=== PATIENT | male | born 1985 | race Caucasian/White ===

== ENCOUNTER 2018-04-29 06:38 | Inpatient (IN) | payer SELFPAY ==
[2018-04-29] VITALS (13 sets, daily range): BP systolic 116–184; BP diastolic 71–130
[~2018-04-29] VITALS: Ht 172.7 cm; Wt 57.0 kg
[2018-04-29] MEDS ORDERED: KETOROLAC 30 MG/ML VIAL. IV ONE (07:30)
[2018-04-29] MEDS ORDERED: FAMOTIDINE 20 MG/2 ML VIAL IVP ONE (07:30)
[2018-04-29] MEDS ORDERED: ONDANSETRON PF 4 MG/2 ML VIAL. IV ONE (07:30)
[2018-04-29] MEDS ORDERED: IV NORMAL SALINE 1000ML BAG 1,000 ML IV ONE (07:30)
--- NOTE | 2018-04-29 07:31 | EKG ---
[facility] [address] [place] [address] Test Date: 2018-04-29 Test Time: 07:21:23 Pat Name: PAO DOUGLAS Department: Room: Gender: M Refrigeration Mechanic Helper: : 1985 Requested By: CASIMIRO CRANE Order Number: [id number] Reading MD: Logan Contreras MD Measurements Intervals Lafe Rate: 102 P: -73 ID: 100 QRS: 17 QRSD: 104 T: 125 QT: 364 QTc: 479 Interpretive Statements SINUS TACHYCARDIA LVH PVC Electronically Signed On 04-29-2018 10:37:51 CDT by Logan Contreras MD
[2018-04-29 07:59] LABS: BILIRUBIN,URINE NEGATIVE (NEG); CLARITY,URINE CLEAR; COLOR,URINE YELLOW; NITRITE,URINE NEGATIVE (NEG); PH,URINE 6.5; PROTEIN,URINE >=300 mg/dL (NEG-TRACE); UROBILINOGEN,URINE 0.2 mg/dL (0.2 mg/dL)
[2018-04-29 08:00] LABS: BASO # 0.1 x10^3/uL (0.0-0.2); BASO % 1 % (0-3); EOS # 0.5 x10^3/uL (0.0-0.7); EOS % 4 % (0-3); HEMATOCRIT 46.3 % (39.0-53.0); HEMOGLOBIN 16.3 g/dL (13.0-17.5); LYMPH # 1.7 x10^3/uL (1.0-4.8); LYMPH % 13 % (24-48); MEAN CORPUSCULAR HEMOGLOBIN 29 pg (25-35); MEAN CORPUSCULAR HGB CONC 35 g/dL (31-37); MEAN CORPUSCULAR VOLUME 82 fL (79-100); MONO # 0.8 x10^3/uL (0.0-1.1); MONO % 6 % (0-9); NEUT # 10.7 x10^3uL (1.8-7.7); NEUT % 77 % (31-73); PLATELET COUNT 251 x10^3/uL (140-400); RED BLOOD COUNT 5.62 x10^6/uL (4.30-5.70); RED CELL DISTRIBUTION WIDTH 14.4 % (11.5-14.5); WHITE BLOOD COUNT 13.9 x10^3/uL (4.0-11.0)
[2018-04-29 08:06] LABS: AMPHETAMINE/METHAMPHETAMINE NEG (NEG); BARBITURATES NEG (NEG); BENZODIAZEPINES POS (NEG); CANNABINOIDS NEG (NEG); COCAINE NEG (NEG); METHADONE NEG (NEG); OPIATES POS (NEG); PHENCYCLIDINE NEG (NEG)
[2018-04-29 08:08] LABS: SQUAMOUS EPITHELIAL CELL,UR OCC /LPF
[2018-04-29 08:09] LABS: BACTERIA,URINE FEW /HPF (0-FEW); RBC,URINE 0 /HPF (0-2)
[2018-04-29 08:11] LABS: PROTHROMBIN TIME PATIENT 12.3 SEC (11.7-14.0)
[2018-04-29 08:12] LABS: ALBUMIN 4.3 g/dL (3.4-5.0); CALCIUM 9.5 mg/dL (8.5-10.1); CREATININE 1.6 mg/dL (0.7-1.3); MAGNESIUM 2.1 mg/dL (1.8-2.4); TOTAL BILIRUBIN 0.5 mg/dL (0.2-1.0); TOTAL PROTEIN 8.7 g/dL (6.4-8.2)
[2018-04-29 08:14] LABS: POTASSIUM 2.1 mmol/L (3.5-5.1)
[2018-04-29] MEDS ORDERED: IOHEXOL 300 MG/ML 100ML VIAL. IV ONE (08:15)
[2018-04-29] MEDS ORDERED: IOHEXOL 240 MG/ML 50ML VIAL. PO ONE (08:15)
[2018-04-29] MEDS ORDERED: POTASSIUM CL 40MEQ IN 0.9%NACL 1,000 ML IV ONE (08:30)
[2018-04-29] MEDS ORDERED: ASPIRIN 325 MG TABLET PO ONE (08:30)
[2018-04-29] MEDS ORDERED: LABETALOL 20 MG/4 ML DISP.SYRIN. IVP ONE ×2 (08:30→10:00)
--- NOTE | 2018-04-29 09:41 | RAD ---
CT abdomen and pelvis with contrast History: Left lower quadrant pain, nausea, vomiting, and diarrhea Technique: After the administration of oral and intravenous contrast, CT imaging was performed of the abdomen and pelvis. Multiplanar images are reviewed. Exposure: One or more of the following individualized dose reduction techniques were utilized for this examination: 1. Automated exposure control 2. Adjustment of the mA and/or kV according to patient size 3. Use of iterative reconstruction technique. Contrast: 60 cc Omnipaque 300 Comparison: None Findings: There is no significant abnormality of the visualized lung bases. There is no significant abnormality of the liver, spleen, pancreas, adrenal glands. Both kidneys enhance without hydronephrosis. There are couple of small hypodense foci of the left kidney too small to accurately characterize, largest about 0.6 cm. Gallbladder is present without obvious intraluminal abnormality by CT. There is retained stool in the colon greatest of the ascending through transverse colon and to lesser degree of descending colon. There is suggestion of very mild wall thickening of a segment near the junction of the sigmoid and descending colon although no adjacent inflammatory change of the fat. While not opacified with oral contrast, at least a segment of normal caliber appendix is believed to be visualized. There is distention of urinary bladder. Ureters in the pelvis are difficult to visualize. 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 Impression: 1. While not opacified with contrast, at least a segment of normal caliber appendix is believed to be visualized. There is retained stool in the colon. There may be very mild wall thickening at the junction of descending and sigmoid colon as can be seen with very mild colitis although no significant inflammatory change of the adjacent fat. 2. There is distention of urinary bladder. Electronically signed by: Carlos Loredo MD (04/29/2018 9:36 AM) [id number]
--- NOTE | 2018-04-29 10:05 | PHYS DOC ---
Past Medical History Past Medical History: Hypertension Additional Information: 1/2 pack a day Alcohol Use: None Drug Use: None Adult General Chief Complaint Chief Complaint: ABDOMINAL PAIN HPI HPI Patient is a 32 year old [f__sex] who presents with [] Review of Systems Review of Systems Constitutional: Denies fever or chills [] Eyes: Denies change in visual acuity, redness, or eye pain [] HENT: Denies nasal congestion or sore throat [] Respiratory: Denies cough or shortness of breath [] Cardiovascular: No additional information not addressed in HPI [] GI: Denies abdominal pain, nausea, vomiting, bloody stools or diarrhea [] : Denies dysuria or hematuria [] Musculoskeletal: Denies back pain or joint pain [] Integument: Denies rash or skin lesions [] Neurologic: Denies headache, focal weakness or sensory changes [] Endocrine: Denies polyuria or polydipsia [] All other systems were reviewed and found to be within normal limits, except as documented in this note. Current Medications Current Medications Current Medications Medications (Trade) Dose Ordered Sig/Zac Start Time Stop Time Status Last Admin Dose Admin Aspirin (Shelbie Aspirin) 325 mg 1X ONCE 04/29/18 08:30 04/29/18 08:31 DC 04/29/18 08:53 325 MG Ceftriaxone Sodium 50 ml @ 100 mls/hr 1X ONCE 04/29/18 10:00 04/29/18 10:29 DC 04/29/18 11:29 100 MLS/HR Famotidine (Pepcid Vial) 20 mg 1X ONCE 04/29/18 07:30 04/29/18 07:44 DC 04/29/18 07:52 20 MG Iohexol (Omnipaque 240 Mg/ml) 50 ml 1X ONCE 04/29/18 08:15 04/29/18 08:30 DC 04/29/18 08:15 50 ML Iohexol (Omnipaque 300 Mg/ml) 75 ml 1X ONCE 04/29/18 08:15 04/29/18 08:30 DC 04/29/18 09:12 60 ML Ketorolac Tromethamine (Toradol 30mg Vial) 15 mg 1X ONCE 04/29/18 07:30 04/29/18 07:44 DC 04/29/18 07:53 15 MG Labetalol HCl (Normodyne Iv Push) 20 mg 1X ONCE 04/29/18 10:00 04/29/18 10:04 DC 04/29/18 10:48 20 MG Metronidazole 100 ml @ 100 mls/hr 1X ONCE 04/29/18 10:00 04/29/18 10:59 DC 04/29/18 12:25 100 MLS/HR Ondansetron HCl (Zofran) 4 mg 1X ONCE 04/29/18 07:30 04/29/18 07:44 DC 04/29/18 07:50 4 MG Potassium Chloride/Sodium Chloride 1,000 ml @ 150 mls/hr 1X ONCE 04/29/18 08:30 04/29/18 15:09 04/29/18 08:56 150 MLS/HR Sodium Chloride 1,000 ml @ 1,000 mls/hr 1X ONCE 04/29/18 07:30 04/29/18 08:29 DC 04/29/18 07:48 1,000 MLS/HR Allergies Allergies Physical Exam Physical Exam Constitutional: Well developed, well nourished, no acute distress, non-toxic appearance. [] HENT: Normocephalic, atraumatic, bilateral external ears normal, oropharynx moist, no oral exudates, nose normal. [] Eyes: PERRLA, EOMI, conjunctiva normal, no discharge. [] Neck: Normal range of motion, no tenderness, supple, no stridor. [] Cardiovascular:Heart rate regular rhythm, no murmur [] Lungs & Thorax: Bilateral breath sounds clear to auscultation [] Abdomen: Bowel sounds normal, soft, no tenderness, no masses, no pulsatile masses. [] Skin: Warm, dry, no erythema, no rash. [] Back: No tenderness, no CVA tenderness. [] Extremities: No tenderness, no cyanosis, no clubbing, ROM intact, no edema. [] Neurologic: Alert and oriented X 3, normal motor function, normal sensory function, no focal deficits noted. [] Psychologic: Affect normal, judgement normal, mood normal. [] Current Patient Data Vital Signs Vital Signs Date Time Temp Pulse Resp B/P (MAP) Pulse Ox O2 Delivery O2 Flow Rate FiO2 04/29/18 08:55 98 228/149 04/29/18 07:10 98.2 18 99 Room Air 98.2 Lab Values Laboratory Tests Test 04/29/18 07:30 04/29/18 07:39 White Blood Count 13.9 x10^3/uL (4.0-11.0) H Red Blood Count 5.62 x10^6/uL (4.30-5.70) Hemoglobin 16.3 g/dL (13.0-17.5) Hematocrit 46.3 % (39.0-53.0) Mean Corpuscular Volume 82 fL (79-100) Mean Corpuscular Hemoglobin 29 pg (25-35) Mean Corpuscular Hemoglobin Concent 35 g/dL (31-37) Red Cell Distribution Width 14.4 % (11.5-14.5) Platelet Count 251 x10^3/uL (140-400) Neutrophils (%) (Auto) 77 % (31-73) H Lymphocytes (%) (Auto) 13 % (24-48) L Monocytes (%) (Auto) 6 % (0-9) Eosinophils (%) (Auto) 4 % (0-3) H Basophils (%) (Auto) 1 % (0-3) Neutrophils # (Auto) 10.7 x10^3uL (1.8-7.7) H Lymphocytes # (Auto) 1.7 x10^3/uL (1.0-4.8) Monocytes # (Auto) 0.8 x10^3/uL (0.0-1.1) Eosinophils # (Auto) 0.5 x10^3/uL (0.0-0.7) Basophils # (Auto) 0.1 x10^3/uL (0.0-0.2) Prothrombin Time 12.3 SEC (11.7-14.0) Prothrombin Time INR 1.0 (0.8-1.1) Sodium Level 139 mmol/L (136-145) Potassium Level 2.1 mmol/L (3.5-5.1) *L Chloride Level 92 mmol/L (98-107) L Carbon Dioxide Level 34 mmol/L (21-32) H Anion Gap 13 (6-14) Blood Urea Nitrogen 16 mg/dL (8-26) Creatinine 1.6 mg/dL (0.7-1.3) H Estimated GFR (Cockcroft-Gault) 50.0 BUN/Creatinine Ratio 10 (6-20) Glucose Level 107 mg/dL (70-99) H Lactic Acid Level 1.4 mmol/L (0.4-2.0) Calcium Level 9.5 mg/dL (8.5-10.1) Magnesium Level 2.1 mg/dL (1.8-2.4) Total Bilirubin 0.5 mg/dL (0.2-1.0) Aspartate Amino Transferase (AST) 23 U/L (15-37) Alanine Aminotransferase (ALT) 26 U/L (16-63) Alkaline Phosphatase 116 U/L (46-116) Creatine Kinase 80 U/L (39-308) Creatine Kinase MB (Mass) 1.4 ng/mL (0.0-3.6) Creatine Kinase MB Relative Index 1.8 % (0-4) Troponin I Quantitative 0.116 ng/mL (0.000-0.055) Total Protein 8.7 g/dL (6.4-8.2) H Albumin 4.3 g/dL (3.4-5.0) Albumin/Globulin Ratio 1.0 (1.0-1.7) Lipase 180 U/L (73-393) Urine Collection Type Unknown Urine Color Yellow Urine Clarity Clear Urine pH 6.5 Urine Specific [place] 1.020 Urine Protein >=300 mg/dL (NEG-TRACE) Urine Glucose (UA) Negative mg/dL (NEG) Urine Ketones (Stick) Negative mg/dL (NEG) Urine Blood Negative (NEG) Urine Nitrite Negative (NEG) Urine Bilirubin Negative (NEG) Urine Urobilinogen Dipstick 0.2 mg/dL (0.2 mg/dL) Urine Leukocyte Esterase Negative (NEG) Urine RBC 0 /HPF (0-2) Urine WBC 1-4 /HPF (0-4) Urine Squamous Epithelial Cells Occ /LPF Urine Bacteria Few /HPF (0-FEW) Urine Opiates Screen Pos (NEG) Urine Methadone Screen Neg (NEG) Urine Barbiturates Neg (NEG) Urine Phencyclidine Screen Neg (NEG) Urine Amphetamine/Methamphetamine Neg (NEG) Urine Benzodiazepines Screen Pos (NEG) Urine Cocaine Screen Neg (NEG) Urine Cannabinoids Screen Neg (NEG) Urine Ethyl Alcohol Neg (NEG) Laboratory Tests 04/29/18 07:30 Laboratory Tests 04/29/18 07:30 EKG EKG @0721: Sinus tachycardia at 102bpm, nonspecific t wave inversion V4-V6, PVC noted, No ST elevation Radiology/Procedures Radiology/Procedures [] Course & Med Decision Making Course & Med Decision Making Pertinent Labs and Imaging studies reviewed. (See chart for details) [] Dragon Disclaimer Dragon Disclaimer This electronic medical record was generated, in whole or in part, using a voice recognition dictation system. Departure Departure Impression: Primary Impression: Hypertensive emergency Additional Impressions: Elevated troponin Hypokalemia Colitis Disposition: ADMITTED INPATIENT Condition: GUARDED Referrals: NO PCP (PCP) Problem Qualifiers CASIMIRO CRANE DO Apr 29, 2018 10:05
[2018-04-29] MEDS ORDERED: ONDANSETRON PF 4 MG/2 ML VIAL. IV PRN ×2 (10:15→20:45)
[2018-04-29] MEDS ORDERED: POTASSIUM CHLORIDE 20 MEQ TABLET.ER. PO ONE ×2 (10:15→13:30)
[2018-04-29] MEDS ORDERED: NICOTINE 21MG PATCH. TD ONE (10:15)
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
--- NOTE | 2018-04-29 12:52 | PDOC2 ---
GI CONSULT Reason For Consult: Abdominal pain since February HPI: HPI: 32 y/o male admitted through ER to ICU w/ HTN (initially 268/188). GI-barrera, he has had abdominal pain since February, he says precipitated by taking codeine for a toothache. The pain is left-sided between ribs and hip and can radiate across the abdomen toward the right. He cannot specify the quality of the pain but it can keep him awake during the night. He says it's better after eating and then gradually recurs over a couple hours. Pain is also better after stooling. He has noted some heartburn recently, so his mom started him on omeprazole 20mg QD about a week ago. Also has occasional nausea and vomiting - about once every 2 weeks "if I really eat a lot" (but occurred last night after eating some ham). Emesis can be undigested food (sometimes hours after eating) or bilious. No hematemesis. He has had a good appetite but says he has lost 21 pounds unintentionally since February. Denies diarrhea, hematochezia, and melena. Bowel habits seem a bit irregular - maybe on the constipation side. Last stool was normal at 1:00 a.m. today. No previous EGD or colonoscopy. No GB, liver, or pancreas history. Takes ibuprofen daily for headaches. Labs significant for WBC 13.9, K+ 2.1, Cr 1.6, and elevated troponin. UA w/ protein. Tox screen + benzos and opiates. On CT: no obvious GB abnormality, retained stool greatest in the ascending through transverse colon, suggestion of very mild wall thickening of a segment near the junction of the sigmoid and descending colon, normal caliber appendix ( though not opacified with contrast), distended urinary bladder, and small left pelvic calcification. Was given IV atbx and H2 trevor in ER. Mother and sister present, both w/ h/o diverticular disease and some concern re : his gallbladder. PMH: PMH: HTN, headaches FH: Family History: Cancer (breast - mother), Other (mother and sister - diverticular disease and asthma, sister - "lots of GI problems") Social History: Smoke: <1 pack per day ALCOHOL: none Drugs: None ROS: GEN: Denies fevers, chills, sweats HEENT: Denies blurred vision, sore throat CV: Denies chest pain RESP: Denies shortness of air, cough GI: Per HPI : Denies hematuria, dysuria ENDO: +weight loss NEURO: +headaches MSK: Denies weakness, joint pain/swelling SKIN: Denies jaundice, pruritus Vitals: Vitals: Vital Signs Date Time Temp Pulse Resp B/P (MAP) Pulse Ox O2 Delivery O2 Flow Rate FiO2 04/29/18 10:48 79 197/138 04/29/18 07:10 98.2 18 99 Room Air 98.2 Labs: Labs: Laboratory Tests Test 04/29/18 07:30 04/29/18 07:39 04/29/18 10:30 White Blood Count 13.9 x10^3/uL (4.0-11.0) Red Blood Count 5.62 x10^6/uL (4.30-5.70) Hemoglobin 16.3 g/dL (13.0-17.5) Hematocrit 46.3 % (39.0-53.0) Mean Corpuscular Volume 82 fL (79-100) Mean Corpuscular Hemoglobin 29 pg (25-35) Mean Corpuscular Hemoglobin Concent 35 g/dL (31-37) Red Cell Distribution Width 14.4 % (11.5-14.5) Platelet Count 251 x10^3/uL (140-400) Neutrophils (%) (Auto) 77 % (31-73) Lymphocytes (%) (Auto) 13 % (24-48) Monocytes (%) (Auto) 6 % (0-9) Eosinophils (%) (Auto) 4 % (0-3) Basophils (%) (Auto) 1 % (0-3) Neutrophils # (Auto) 10.7 x10^3uL (1.8-7.7) Lymphocytes # (Auto) 1.7 x10^3/uL (1.0-4.8) Monocytes # (Auto) 0.8 x10^3/uL (0.0-1.1) Eosinophils # (Auto) 0.5 x10^3/uL (0.0-0.7) Basophils # (Auto) 0.1 x10^3/uL (0.0-0.2) Prothrombin Time 12.3 SEC (11.7-14.0) Prothromb Time International Ratio 1.0 (0.8-1.1) Sodium Level 139 mmol/L (136-145) Potassium Level 2.1 mmol/L (3.5-5.1) Chloride Level 92 mmol/L (98-107) Carbon Dioxide Level 34 mmol/L (21-32) Anion Gap 13 (6-14) Blood Urea Nitrogen 16 mg/dL (8-26) Creatinine 1.6 mg/dL (0.7-1.3) Estimated GFR (Cockcroft-Gault) 50.0 BUN/Creatinine Ratio 10 (6-20) Glucose Level 107 mg/dL (70-99) Lactic Acid Level 1.4 mmol/L (0.4-2.0) Calcium Level 9.5 mg/dL (8.5-10.1) Magnesium Level 2.1 mg/dL (1.8-2.4) Total Bilirubin 0.5 mg/dL (0.2-1.0) Aspartate Amino Transf (AST/SGOT) 23 U/L (15-37) Alanine Aminotransferase (ALT/SGPT) 26 U/L (16-63) Alkaline Phosphatase 116 U/L (46-116) Creatine Kinase 80 U/L (39-308) Creatine Kinase MB (Mass) 1.4 ng/mL (0.0-3.6) Creatine Kinase MB Relative Index 1.8 % (0-4) Troponin I Quantitative 0.116 ng/mL (0.000-0.055) 0.115 ng/mL (0.000-0.055) Total Protein 8.7 g/dL (6.4-8.2) Albumin 4.3 g/dL (3.4-5.0) Albumin/Globulin Ratio 1.0 (1.0-1.7) Lipase 180 U/L (73-393) Urine Collection Type Unknown Urine Color Yellow Urine Clarity Clear Urine pH 6.5 Urine Specific [place] 1.020 Urine Protein >=300 mg/dL (NEG-TRACE) Urine Glucose (UA) Negative mg/dL (NEG) Urine Ketones (Stick) Negative mg/dL (NEG) Urine Blood Negative (NEG) Urine Nitrite Negative (NEG) Urine Bilirubin Negative (NEG) Urine Urobilinogen Dipstick 0.2 mg/dL (0.2 mg/dL) Urine Leukocyte Esterase Negative (NEG) Urine RBC 0 /HPF (0-2) Urine WBC 1-4 /HPF (0-4) Urine Squamous Epithelial Cells Occ /LPF Urine Bacteria Few /HPF (0-FEW) Urine Opiates Screen Pos (NEG) Urine Methadone Screen Neg (NEG) Urine Barbiturates Neg (NEG) Urine Phencyclidine Screen Neg (NEG) Urine Amphetamine/Methamphetamine Neg (NEG) Urine Benzodiazepines Screen Pos (NEG) Urine Cocaine Screen Neg (NEG) Urine Cannabinoids Screen Neg (NEG) Urine Ethyl Alcohol Neg (NEG) Allergies: Coded Allergies: aspirin (Verified Adverse Reaction, Intermediate, 04/29/18) GI distress Medications: Current Medications Medications (Trade) Dose Ordered Sig/Zac Route PRN Reason Start Time Stop Time Status Last Admin Dose Admin Ondansetron HCl (Zofran) 4 mg 1X ONCE IV 04/29/18 07:30 04/29/18 07:44 DC 04/29/18 07:50 Famotidine (Pepcid Vial) 20 mg 1X ONCE IVP 04/29/18 07:30 04/29/18 07:44 DC 04/29/18 07:52 Ketorolac Tromethamine (Toradol 30mg Vial) 15 mg 1X ONCE IV 04/29/18 07:30 04/29/18 07:44 DC 04/29/18 07:53 Sodium Chloride 1,000 ml @ 1,000 mls/hr 1X ONCE IV 04/29/18 07:30 04/29/18 08:29 DC 04/29/18 07:48 Iohexol (Omnipaque 300 Mg/ml) 75 ml 1X ONCE IV 04/29/18 08:15 04/29/18 08:30 DC 04/29/18 09:12 Iohexol (Omnipaque 240 Mg/ml) 50 ml 1X ONCE PO 04/29/18 08:15 04/29/18 08:30 DC 04/29/18 08:15 Aspirin (Shelbie Aspirin) 325 mg 1X ONCE PO 04/29/18 08:30 04/29/18 08:31 DC 04/29/18 08:53 Labetalol HCl (Normodyne Iv Push) 20 mg 1X ONCE IVP 04/29/18 08:30 04/29/18 08:31 DC 04/29/18 08:55 Potassium Chloride/Sodium Chloride 1,000 ml @ 150 mls/hr 1X ONCE IV 10/2/18 08:30 04/29/18 15:09 04/29/18 08:56 Ceftriaxone Sodium 50 ml @ 100 mls/hr 1X ONCE IV 04/29/18 10:00 04/29/18 10:29 DC 04/29/18 11:29 Metronidazole 100 ml @ 100 mls/hr 1X ONCE IV 04/29/18 10:00 04/29/18 10:59 DC 04/29/18 12:25 Labetalol HCl (Normodyne Iv Push) 20 mg 1X ONCE IVP 04/29/18 10:00 04/29/18 10:04 DC 04/29/18 10:48 Nicotine (Nicoderm Cq 21mg) 1 patch 1X ONCE TD 04/29/18 10:15 04/29/18 10:16 DC 04/29/18 10:46 Potassium Chloride (Klor-Con) 40 meq 1X ONCE PO 04/29/18 10:15 04/29/18 10:16 DC 04/29/18 11:29 Nicardipine HCl 50 mg/Sodium Chloride 270 ml @ 27 mls/hr CONT PRN IV SEE I/O RECORD 04/29/18 11:30 04/29/18 12:25 Imaging: Imaging: CT A/P w/ oral and IV contrast Findings: There is no significant abnormality of the visualized lung bases. There is no significant abnormality of the liver, spleen, pancreas, adrenal glands. Both kidneys enhance without hydronephrosis. There are couple of small hypodense foci of the left kidney too small to accurately characterize, largest about 0.6 cm. Gallbladder is present without obvious intraluminal abnormality by CT. There is retained stool in the colon greatest of the ascending through transverse colon and to lesser degree of descending colon. There is suggestion of very mild wall thickening of a segment near the junction of the sigmoid and descending colon although no adjacent inflammatory change of the fat. While not opacified with oral contrast, at least a segment of normal caliber appendix is believed to be visualized. There is distention of urinary bladder. Ureters in the pelvis are difficult to visualize. There is a small calcification in the left pelvis more likely to be outside of the ureter telemarketing representative of a phlebolith. Impression: 1. While not opacified with contrast, at least a segment of normal caliber appendix is believed to be visualized. There is retained stool in the colon. There may be very mild wall thickening at the junction of descending and sigmoid colon as can be seen with very mild colitis although no significant inflammatory change of the adjacent fat. 2. There is distention of urinary bladder. PE: GEN: NAD HEENT: Atraumatic, PERRL, poor dentition LUNGS: CTAB HEART: RRR ABD: NABS, S/ND/NT EXTREMITY: No edema SKIN: No rashes, no jaundice NEURO/PSYCH: A & O 3 A/P: A/P: Abd pain -left-sided though can spread across to right, better after eating and stooling -CT: retained stool greatest in the ascending through transverse colon Heartburn, occasional n/v, weight loss, ?irregular bowel habits -started OTC PPI within the past week -daily NSAID use for chronic GARCIA HTN, elevated troponin, hypokalemia, ABI CRC screen - average risk -- Continue workup per cardiology. Okay to eat per GI. Monitor pain, stooling, and for n/v. Continue PPI QD. Try Dulcolax and Miralax for retained stool. BEVERLY VANG Apr 29, 2018 12:52
[2018-04-29] MEDS: hydrALAZINE 25 MG TABLET PO SCH ×2 (13:07→21:08)
[2018-04-29] MEDS: fentaNYL PF VIAL 100 MCG/2 ML VIAL IV PRN ×4 (13:07→21:07)
[2018-04-29] MEDS ORDERED: BISACODYL 5 MG TABLET.DR. PO ONE (13:30)
--- NOTE | 2018-04-29 13:51 | RAD ---
EXAM: Chest, single view. HISTORY: Hypertensive urgency. COMPARISON: None. FINDINGS: A frontal view of the chest is obtained. There is no infiltrate, pleural effusion or pneumothorax. The heart is normal in size. IMPRESSION: No acute pulmonary finding. Electronically signed by: Mariya Babb MD (04/29/2018 1:48 PM) [place] [id number]
--- NOTE | 2018-04-29 14:51 | RAD ---
EXAM: Francis scale and color Doppler renal artery sonogram. HISTORY: Hypertension. TECHNIQUE: Francis scale and color Doppler sonographic imaging of the kidneys and renal arteries with spectral waveform analysis was performed. COMPARISON: CT obtained on the same date. FINDINGS: The right kidney measures 10.3 cm [id number]. The left kidney measures 11.6 cm [id number]. There is mild right hydronephrosis or pelviectasis. No solid or cystic renal lesion is seen. The bladder is unremarkable. There are normal renal artery to aorta velocity ratios. There are normal renal artery peak systolic velocities, measuring 77 cm/s on the right and 54 cm/s on the left. IMPRESSION: 1. Mild right hydronephrosis or pelviectasis. 2. No Doppler evidence of hemodynamically significant stenosis within the renal arteries. Electronically signed by: Mariya Babb MD (04/29/2018 2:47 PM) [facility]
[2018-04-29] MEDS: POLYETHYLENE GLYCOL 3350 17 GM PACKET. PO SCH (15:00)
--- NOTE | 2018-04-29 15:00 | CARD ---
MR#: [id number] Date of Study: 04/29/2018 Ordering Physician: ERAN ALVAREZ, Referring Physician: WILLIAM ADRIAN, Tech: Adriana Serrano APPROVED REPORT EXAM: Two-dimensional and M-mode echocardiogram with Doppler and color Doppler. Other Information Quality : GoodHR: 80bpm Rhythm : NSR INDICATION Hypertension/HCVD Elevated Troponin 2D DIMENSIONS RVDd2.1 (2.9-3.5cm)Left Atrium(2D)3.0 (1.6-4.0cm) IVSd1.8 (0.7-1.1cm)Aortic Root(2D)3.3 (2.0-3.7cm) LVDd4.8 (3.9-5.9cm)LVOT Diameter2.3 (1.8-2.4cm) PWd1.4 (0.7-1.1cm)LVDs2.4 (2.5-4.0cm) FS (%) 50.5 %SV89.8 ml LVEF(%)81.6 (>50%) Aortic Valve AoV Peak Adrian.240.6cm/sAoV VTI41.6cm AO Peak GR.24.8mmHgLVOT Peak Adrian.87.5cm/s AO Mean GR.13mmHgAVA (VMAX)1.47cm2 Mitral Valve MV E Qcqnaddm86.6cm/sMV DECEL [id number] MV A Bfwwnnmq75.9cm/sE/A Ratio1.4 Pulmonary Valve PV Peak Tkgomgcj253.1cm/s Tricuspid Valve TR P. Hxiqgoio466gt/sRAP EQGTFAOG6uoKg TR Peak Gr.37esSjHCYJ84wbIi Pulmonary Vein S1 Haiwjsbj20.5cm/sD2 Iefrqlcg09.8cm/s PVa [id number] LEFT VENTRICLE The left ventricle is normal size. There is moderate concentric left ventricular hypertrophy. The lef t ventricular systolic function is normal. The Ejection Fraction is 65-70%. There is normal LV segmen yanni wall motion. Transmitral Doppler flow pattern is Grade II-pseudonormal filling dynamics. RIGHT VENTRICLE The right ventricle is normal size. There is normal right ventricular wall thickness. The right ventr icular systolic function is normal. ATRIA The left atrium size is normal. The right atrium size is normal. The interatrial septum is intact wit h no evidence for an atrial septal defect or patent foramen ovale as noted on 2-D or Doppler imaging. AORTIC VALVE The aortic valve is bicuspid. Doppler and Color Flow revealed trace aortic regurgitation. Calculated aortic valve area is 1.6 cm2 with maximum pressure gradient of 23 mmHg and mean pressure gradient of 13 mmHg. Doppler and color-flow analysis revealed mild aortic stenosis. MITRAL VALVE The mitral valve is thickened but opens well. Mitral annular calcification is mild. There is no malu l valve stenosis. Doppler and Color-flow revealed trace mitral regurgitation. TRICUSPID VALVE The tricuspid valve is normal in structure and function. Doppler and Color Flow revealed trace tricus pid regurgitation. There is no tricuspid valve stenosis. PULMONIC VALVE The pulmonic valve is not well visualized. Doppler and Color Flow revealed trace pulmonic valvular re gurgitation. GREAT VESSELS The aortic root is normal in size. Normal pulmonary venous flow (Doppler). The IVC is normal in size and collapses >50% with inspiration. PERICARDIAL EFFUSION There is no evidence of significant pericardial effusion. Critical Notification Critical Value: No <Conclusion> The left ventricular systolic function is normal. The Ejection Fraction is 65-70%. There is moderate concentric left ventricular hypertrophy. Bicuspid aortic valve with mild aortic stenosis. Trace mitral regurgitation. Trace tricuspid regurgitation. There is no evidence of significant pericardial effusion. Signed by : Bruce Grant, Electronically Approved : 04/29/2018 14:59:04
--- NOTE | 2018-04-29 15:03 | PDOC1 ---
History and Physical Date of Admission Date of Admission DATE: 04/29/18 TIME: 14:57 Source Source: Chart review, Patient History of Present Illness History of Present Illness Mr. Cartwright, is a 32 year old male admit with abdominal pain for some time.. BP of 268/188 with known prior history of hypertension but has not been treated. He dislikes going to doctors or taking meds. affect odd, and Hx from sister and mother. Denies changes in vision, CP, palpitations, dyspnea or MCINTYRE. Reports chronic headaches abd pain much better in 2 hours since in ER Past Medical History Cardiovascular: HTN (age of diagnosis unknown - has not been treated) Pulmonary: No pertinent hx CENTRAL NERVOUS SYSTEM: Other (none) GI: Other (abdominal pain since February) Heme/Onc: No pertinent hx Hepatobiliary: No pertinent hx Psych: No pertinent hx Musculoskeletal: No pain Rheumatologic: No pertinent hx Infectious disease: No pertinent hx ENT: No pertinent hx Renal/: No pertinent hx Endocrine: No pertinent hx Dermatology: No pertinent hx Past Surgical History Past Surgical History: No pertinent history Family History Family History: Hypertension, Stroke Social History Smoke: <1 pack per day ALCOHOL: none Drugs: None Current Problem List Problem List Problems Medical Problems: (1) Colitis Status: Acute (2) Elevated troponin Status: Acute (3) Hypertensive emergency Status: Acute (4) Hypokalemia Status: Acute Current Medications Current Medications Current Medications Ondansetron HCl (Zofran) 4 mg 1X ONCE IV Last administered on 04/29/18at 07:50 ; Start 04/29/18 at 07:30; Stop 04/29/18 at 07:44; Status DC Famotidine (Pepcid Vial) 20 mg 1X ONCE IVP Last administered on 04/29/18at 07: 52; Start 04/29/18 at 07:30; Stop 04/29/18 at 07:44; Status DC Ketorolac Tromethamine (Toradol 30mg Vial) 15 mg 1X ONCE IV Last administered on 04/29/18at 07:53; Start 04/29/18 at 07:30; Stop 04/29/18 at 07:44; Status DC Sodium Chloride 1,000 ml @ 1,000 mls/hr 1X ONCE IV Last administered on at 07:48; Start 04/29/18 at 07:30; Stop 04/29/18 at 08:29; Status DC Iohexol (Omnipaque 300 Mg/ml) 75 ml 1X ONCE IV Last administered on 04/29/18at 09:12; Start 04/29/18 at 08:15; Stop 04/29/18 at 08:30; Status DC Iohexol (Omnipaque 240 Mg/ml) 50 ml 1X ONCE PO Last administered on 04/29/18at 08:15; Start 04/29/18 at 08:15; Stop 04/29/18 at 08:30; Status DC Aspirin (Shelbie Aspirin) 325 mg 1X ONCE PO Last administered on 04/29/18at 08:53 ; Start 04/29/18 at 08:30; Stop 04/29/18 at 08:31; Status DC Labetalol HCl (Normodyne Iv Push) 20 mg 1X ONCE IVP Last administered on at 08:55; Start 04/29/18 at 08:30; Stop 04/29/18 at 08:31; Status DC Potassium Chloride/Sodium Chloride 1,000 ml @ 150 mls/hr 1X ONCE IV Last administered on 04/29/18at 08:56; Start 04/29/18 at 08:30; Stop 04/29/18 at 15:09 Ceftriaxone Sodium 50 ml @ 100 mls/hr 1X ONCE IV Last administered on at 11:29; Start 04/29/18 at 10:00; Stop 04/29/18 at 10:29; Status DC Metronidazole 100 ml @ 100 mls/hr 1X ONCE IV Last administered on 04/29/18at 12:25; Start 04/29/18 at 10:00; Stop 04/29/18 at 10:59; Status DC Labetalol HCl (Normodyne Iv Push) 20 mg 1X ONCE IVP Last administered on at 10:48; Start 04/29/18 at 10:00; Stop 04/29/18 at 10:04; Status DC Ondansetron HCl (Zofran) 4 mg PRN Q8HRS PRN IV NAUSEA/VOMITING; Start 04/29/18 at 10:15; Stop 04/30/18 at 10:14 Fentanyl Citrate (Fentanyl 2ml Vial) 50 mcg PRN Q2HR PRN IV PAIN Last administered on 04/29/18at 13:07; Start 04/29/18 at 10:15; Stop 04/30/18 at 10:14 Nicotine (Nicoderm Cq 21mg) 1 patch 1X ONCE TD Last administered on 04/29/18at 10:46; Start 04/29/18 at 10:15; Stop 04/29/18 at 10:16; Status DC Potassium Chloride (Klor-Con) 40 meq 1X ONCE PO Last administered on at 11:29; Start 04/29/18 at 10:15; Stop 04/29/18 at 10:16; Status DC Nicardipine HCl 50 mg/Sodium Chloride 270 ml @ 27 mls/hr CONT PRN IV SEE I/O RECORD Last administered on 04/29/18at 12:25; Start 04/29/18 at 11:30 Hydralazine HCl (Apresoline) 25 mg BID PO Last administered on 04/29/18at 13:07 ; Start 04/29/18 at 12:30 Carvedilol (Coreg) 6.25 mg BIDWMEALS PO ; Start 04/29/18 at 17:00 Pantoprazole Sodium (Protonix) 40 mg DAILYAC PO ; Start 04/29/18 at 16:30 Bisacodyl (Dulcolax Tab) 10 mg 1X ONCE PO ; Start 04/29/18 at 13:30; Stop 04/29 at 13:31; Status DC Polyethylene Glycol (miraLAX PACKET) 17 gm DAILY PO ; Start 04/29/18 at 14:00 Potassium Chloride (Klor-Con) 40 meq 1X ONCE PO ; Start 04/29/18 at 13:30; Stop 04/29/18 at 13:35; Status DC Potassium Chloride (Klor-Con) 40 meq DAILYWBKFT PO ; Start 04/30/18 at 08:00 Allergies Allergies: Coded Allergies: aspirin (Verified Adverse Reaction, Intermediate, 04/29/18) GI distress ROS General: No: Chills, Night Sweats, Fatigue, Malaise, Appetite, Other PSYCHOLOGICAL ROS: YES: Anxiety, Irritablity, Other (agoraphobia, social anxiety) Eyes: No Blurry vision, No Decreased vision, No Double vision, No Dry eyes, No Excessive tearing, No Eye Pain, No Itchy Eyes, No Loss of vision, No Photophobia , No Scotomata, No Uses contacts, No Uses glasses, No Other HEENT: No: Heacaches, Visual Changes, Hearing change, Nasal congestion, Nasal discharge, Oral lesions, Sinus pain, Sore Throat, Epistaxis, Sneezing, Snoring, Tinnitus, Vertigo, Vocal changes, Other Respiratory: No: Cough, Hemoptysis, Orthopnea, Pleuritic Pain, Shortness of breath, SOB with excertion, Sputum Changes, Stridor, Tachypnea, Wheezing, Other Cardiovascular: No Chest Pain, No Palpitations, No Orthopnea, No Paroxysmal Noc. Dyspnea, No Edema, No Lt Headedness, No Other Gastrointestinal: Yes Abdominal Pain; No Nausea, No Vomiting, No Diarrhea, No Constipation, No Melena, No Hematochezia, No Other Genitourinary: No Dysuria, No Frequency, No Incontinence, No Hematuria, No Retention, No Discharge, No Urgency, No Pain, No Flank Pain, No Other, No , No , No , No , No , No , No Musculoskeletal: No Gait Disturbance, No Joint Pain, No Joint Stiffness, No Joint Swelling, No Muscle Pain, No Muscular Weakness, No Pain In:, No Swelling In:, No Other Neurological: No Behavorial Changes, No Bowel/Bladder ControlChng, No Confusion , No Dizziness, No Gait Disturbance, No Headaches, No Impaired Coord/balance, No Memory Loss, No Numbness/Tingling, No Seizures, No Speech Problems, No Tremors, No Visual Changes, No Weakness, No Other Skin: Yes Dry Skin Physical Exam General: Alert, mild distress HEENT: Atraumatic, PERRLA, EOMI, Mucous membr. moist/pink, Other (poor dentition, dental caries to front) Lungs: Clear to auscultation Heart: no gallops, murmurs Abdomen: Normal bowel sounds, Soft Extremities: No clubbing, No cyanosis Skin: No breakdown Neuro: Normal tone, Sensation intact, Cranial nerves 3-12 NL Psych/Mental Status: Mood NL, Other (flat and withdrawn affect) Vitals Vitals Vital Signs Date Time Temp Pulse Resp B/P (MAP) Pulse Ox O2 Delivery O2 Flow Rate FiO2 04/29/18 13:07 84 150/94 04/29/18 13:07 20 99 Room Air 04/29/18 07:10 98.2 98.2 Labs Labs Laboratory Tests Test 04/29/18 07:30 04/29/18 07:39 04/29/18 10:30 04/29/18 13:25 White Blood Count 13.9 x10^3/uL (4.0-11.0) Red Blood Count 5.62 x10^6/uL (4.30-5.70) Hemoglobin 16.3 g/dL (13.0-17.5) Hematocrit 46.3 % (39.0-53.0) Mean Corpuscular Volume 82 fL (79-100) Mean Corpuscular Hemoglobin 29 pg (25-35) Mean Corpuscular Hemoglobin Concent 35 g/dL (31-37) Red Cell Distribution Width 14.4 % (11.5-14.5) Platelet Count 251 x10^3/uL (140-400) Neutrophils (%) (Auto) 77 % (31-73) Lymphocytes (%) (Auto) 13 % (24-48) Monocytes (%) (Auto) 6 % (0-9) Eosinophils (%) (Auto) 4 % (0-3) Basophils (%) (Auto) 1 % (0-3) Neutrophils # (Auto) 10.7 x10^3uL (1.8-7.7) Lymphocytes # (Auto) 1.7 x10^3/uL (1.0-4.8) Monocytes # (Auto) 0.8 x10^3/uL (0.0-1.1) Eosinophils # (Auto) 0.5 x10^3/uL (0.0-0.7) Basophils # (Auto) 0.1 x10^3/uL (0.0-0.2) Prothrombin Time 12.3 SEC (11.7-14.0) Prothromb Time International Ratio 1.0 (0.8-1.1) Sodium Level 139 mmol/L (136-145) Potassium Level 2.1 mmol/L (3.5-5.1) Chloride Level 92 mmol/L (98-107) Carbon Dioxide Level 34 mmol/L (21-32) Anion Gap 13 (6-14) Blood Urea Nitrogen 16 mg/dL (8-26) Creatinine 1.6 mg/dL (0.7-1.3) Estimated GFR (Cockcroft-Gault) 50.0 BUN/Creatinine Ratio 10 (6-20) Glucose Level 107 mg/dL (70-99) Lactic Acid Level 1.4 mmol/L (0.4-2.0) Calcium Level 9.5 mg/dL (8.5-10.1) Magnesium Level 2.1 mg/dL (1.8-2.4) Total Bilirubin 0.5 mg/dL (0.2-1.0) Aspartate Amino Transf (AST/SGOT) 23 U/L (15-37) Alanine Aminotransferase (ALT/SGPT) 26 U/L (16-63) Alkaline Phosphatase 116 U/L (46-116) Creatine Kinase 80 U/L (39-308) Creatine Kinase MB (Mass) 1.4 ng/mL (0.0-3.6) Creatine Kinase MB Relative Index 1.8 % (0-4) Troponin I Quantitative 0.116 ng/mL (0.000-0.055) 0.115 ng/mL (0.000-0.055) 0.117 ng/mL (0.000-0.055) Total Protein 8.7 g/dL (6.4-8.2) Albumin 4.3 g/dL (3.4-5.0) Albumin/Globulin Ratio 1.0 (1.0-1.7) Lipase 180 U/L (73-393) Urine Collection Type Unknown Urine Color Yellow Urine Clarity Clear Urine pH 6.5 Urine Specific Chandler 1.020 Urine Protein >=300 mg/dL (NEG-TRACE) Urine Glucose (UA) Negative mg/dL (NEG) Urine Ketones (Stick) Negative mg/dL (NEG) Urine Blood Negative (NEG) Urine Nitrite Negative (NEG) Urine Bilirubin Negative (NEG) Urine Urobilinogen Dipstick 0.2 mg/dL (0.2 mg/dL) Urine Leukocyte Esterase Negative (NEG) Urine RBC 0 /HPF (0-2) Urine WBC 1-4 /HPF (0-4) Urine Squamous Epithelial Cells Occ /LPF Urine Bacteria Few /HPF (0-FEW) Urine Opiates Screen Pos (NEG) Urine Methadone Screen Neg (NEG) Urine Barbiturates Neg (NEG) Urine Phencyclidine Screen Neg (NEG) Urine Amphetamine/Methamphetamine Neg (NEG) Urine Benzodiazepines Screen Pos (NEG) Urine Cocaine Screen Neg (NEG) Urine Cannabinoids Screen Neg (NEG) Urine Ethyl Alcohol Neg (NEG) Laboratory Tests Test 04/29/18 07:30 04/29/18 07:39 04/29/18 10:30 04/29/18 13:25 White Blood Count 13.9 x10^3/uL (4.0-11.0) Red Blood Count 5.62 x10^6/uL (4.30-5.70) Hemoglobin 16.3 g/dL (13.0-17.5) Hematocrit 46.3 % (39.0-53.0) Mean Corpuscular Volume 82 fL (79-100) Mean Corpuscular Hemoglobin 29 pg (25-35) Mean Corpuscular Hemoglobin Concent 35 g/dL (31-37) Red Cell Distribution Width 14.4 % (11.5-14.5) Platelet Count 251 x10^3/uL (140-400) Neutrophils (%) (Auto) 77 % (31-73) Lymphocytes (%) (Auto) 13 % (24-48) Monocytes (%) (Auto) 6 % (0-9) Eosinophils (%) (Auto) 4 % (0-3) Basophils (%) (Auto) 1 % (0-3) Neutrophils # (Auto) 10.7 x10^3uL (1.8-7.7) Lymphocytes # (Auto) 1.7 x10^3/uL (1.0-4.8) Monocytes # (Auto) 0.8 x10^3/uL (0.0-1.1) Eosinophils # (Auto) 0.5 x10^3/uL (0.0-0.7) Basophils # (Auto) 0.1 x10^3/uL (0.0-0.2) Prothrombin Time 12.3 SEC (11.7-14.0) Prothromb Time International Ratio 1.0 (0.8-1.1) Sodium Level 139 mmol/L (136-145) Potassium Level 2.1 mmol/L (3.5-5.1) Chloride Level 92 mmol/L (98-107) Carbon Dioxide Level 34 mmol/L (21-32) Anion Gap 13 (6-14) Blood Urea Nitrogen 16 mg/dL (8-26) Creatinine 1.6 mg/dL (0.7-1.3) Estimated GFR (Cockcroft-Gault) 50.0 BUN/Creatinine Ratio 10 (6-20) Glucose Level 107 mg/dL (70-99) Lactic Acid Level 1.4 mmol/L (0.4-2.0) Calcium Level 9.5 mg/dL (8.5-10.1) Magnesium Level 2.1 mg/dL (1.8-2.4) Total Bilirubin 0.5 mg/dL (0.2-1.0) Aspartate Amino Transf (AST/SGOT) 23 U/L (15-37) Alanine Aminotransferase (ALT/SGPT) 26 U/L (16-63) Alkaline Phosphatase 116 U/L (46-116) Creatine Kinase 80 U/L (39-308) Creatine Kinase MB (Mass) 1.4 ng/mL (0.0-3.6) Creatine Kinase MB Relative Index 1.8 % (0-4) Troponin I Quantitative 0.116 ng/mL (0.000-0.055) 0.115 ng/mL (0.000-0.055) 0.117 ng/mL (0.000-0.055) Total Protein 8.7 g/dL (6.4-8.2) Albumin 4.3 g/dL (3.4-5.0) Albumin/Globulin Ratio 1.0 (1.0-1.7) Lipase 180 U/L (73-393) Urine Collection Type Unknown Urine Color Yellow Urine Clarity Clear Urine pH 6.5 Urine Specific Chandler 1.020 Urine Protein >=300 mg/dL (NEG-TRACE) Urine Glucose (UA) Negative mg/dL (NEG) Urine Ketones (Stick) Negative mg/dL (NEG) Urine Blood Negative (NEG) Urine Nitrite Negative (NEG) Urine Bilirubin Negative (NEG) Urine Urobilinogen Dipstick 0.2 mg/dL (0.2 mg/dL) Urine Leukocyte Esterase Negative (NEG) Urine RBC 0 /HPF (0-2) Urine WBC 1-4 /HPF (0-4) Urine Squamous Epithelial Cells Occ /LPF Urine Bacteria Few /HPF (0-FEW) Urine Opiates Screen Pos (NEG) Urine Methadone Screen Neg (NEG) Urine Barbiturates Neg (NEG) Urine Phencyclidine Screen Neg (NEG) Urine Amphetamine/Methamphetamine Neg (NEG) Urine Benzodiazepines Screen Pos (NEG) Urine Cocaine Screen Neg (NEG) Urine Cannabinoids Screen Neg (NEG) Urine Ethyl Alcohol Neg (NEG) VTE Prophylaxis Ordered VTE Prophylaxis Devices: No VTE Pharmacological Prophylaxi: Yes Assessment/Plan Assessment/Plan acute abdominal pain malignant hypertension, emergency hypertension acute renal failure critical hypokalemia, replace, mag OK troponinemai, demand, CV consult admit to ICU, 35 min discussed with patient and family x2 social anxiety disorder, lives with his mother, is unemployed, watches TV normally tobacco use disorder prior noncompliance with htn care dental caries WILLIAM ADRIAN MD Apr 29, 2018 15:03
[2018-04-29] MEDS: PANTOPRAZOLE 40 MG TABLET.DR. PO SCH (16:18)
[2018-04-29] MEDS: CARVEDILOL 6.25 MG TABLET. PO SCH (16:18)
[2018-04-30] VITALS (18 sets, daily range): BP systolic 128–177; BP diastolic 74–128
[2018-04-30] MEDS: HYDROcodone/APAP 5/325MG 1 TAB TABLET PO PRN ×6 (00:57→19:34)
[2018-04-30 04:52] LABS: CALCIUM 9.1 mg/dL (8.5-10.1); CREATININE 1.3 mg/dL (0.7-1.3); GFR 63.6
[2018-04-30 04:57] LABS: POTASSIUM 2.6 mmol/L (3.5-5.1)
[2018-04-30] MEDS ORDERED: POTASSIUM CHLORIDE 20 MEQ TABLET.ER. PO ONE ×2 (06:00→07:30)
[2018-04-30] MEDS ORDERED: POTASSIUM CL 40MEQ IN 0.9%NACL 1,000 ML IV SCH (06:00)
[2018-04-30] MEDS: hydrALAZINE 25 MG TABLET PO SCH ×2 (08:06→21:02)
[2018-04-30] MEDS: PANTOPRAZOLE 40 MG TABLET.DR. PO SCH (08:07)
[2018-04-30] MEDS: CARVEDILOL 6.25 MG TABLET. PO SCH ×2 (08:08→17:34)
[2018-04-30] MEDS: POLYETHYLENE GLYCOL 3350 17 GM PACKET. PO SCH (08:10)
[2018-04-30] MEDS: POTASSIUM CHLORIDE 20 MEQ TABLET.ER. PO SCH (08:10)
--- NOTE | 2018-04-30 08:56 | PDOC ---
CARDIO Progress Notes Date and Time Date of Service 04/30/2018 Time of Evaluation 0854 Subjective Subjective: No Chest Pain, No shortness of breath, No Palpitations, No Dizziness Vitals Vitals Vital Signs Date Time Temp Pulse Resp B/P (MAP) Pulse Ox O2 Delivery O2 Flow Rate FiO2 04/30/18 08:09 14 Room Air 04/30/18 08:08 95 168/102 04/30/18 07:00 98 04/30/18 04:00 98.2 98.2 Weight Weight [ ] Input and Output Intake and Output Intake and Output 04/30/18 07:00 Intake Total 2250 ml Output Total 2525 ml Balance -275 ml Intake Oral 250 ml IV Total 2000 ml Output Urine Total 2525 ml Laboratory Labs Laboratory Tests Test 04/29/18 10:30 04/29/18 13:25 04/29/18 15:55 04/30/18 04:00 Troponin I Quantitative 0.115 ng/mL (0.000-0.055) 0.117 ng/mL (0.000-0.055) Nasal Screen MRSA (PCR) Negative (Negative) Sodium Level 137 mmol/L (136-145) Potassium Level 2.6 mmol/L (3.5-5.1) Chloride Level 95 mmol/L (98-107) Carbon Dioxide Level 32 mmol/L (21-32) Anion Gap 10 (6-14) Blood Urea Nitrogen 11 mg/dL (8-26) Creatinine 1.3 mg/dL (0.7-1.3) Estimated GFR (Cockcroft-Gault) 63.6 Glucose Level 108 mg/dL (70-99) Calcium Level 9.1 mg/dL (8.5-10.1) Magnesium Level 2.0 mg/dL (1.8-2.4) Physical Exam HEENT: NO Carotid Bruit Chest: Symmetric LUNGS: Clear to Auscultation Heart: S1S2, RRR, no gallops, other (tele: SR) Abdomen: Soft N/T Extremities: No Edema Neurology: alert, oriented, follow commands Assessment Assessment 1. hypertensive urgency --nicardipine gtt weaned off --uptitrate BB and continue hydralazine --TTE with preserved LVEF and moderate conc hypertrophy --renal artery duplex negative for PAMELA --transfer to CVC 2. NSTEMI --demand mediated due to hypertensive urgency --TTE without WMA --hold further ASA due to history of GI distress 3. abdominal pain --per GI 4. tobacco abuse --smoking cessation advised 5. hypokalemia --being repleted 6. ABI --resolved 7. bicuspid aortic valve --patient advised --ongoing follow up with cardiology for monitoring advised as well ERAN ALVAREZ APRN Apr 30, 2018 08:56
[2018-04-30] MEDS ORDERED: CARVEDILOL 6.25 MG TABLET. PO ONE (09:00)
[2018-04-30] MEDS ORDERED: DOCUSATE SODIUM 100 MG CAPSULE. PO PRN (09:15)
[2018-04-30] MEDS ORDERED: MORPHINE SULFATE 2 MG/ML VIAL. IV PRN (09:15)
[2018-04-30] MEDS ORDERED: ACETAMINOPHEN 325 MG TABLET. PO PRN (09:15)
[2018-04-30] MEDS ORDERED: traMADol 50 MG TABLET PO PRN (09:15)
[2018-04-30] MEDS ORDERED: ALBUTEROL SULFATE 2.5 MG/3 ML NEBU. NEB PRN (09:15)
[2018-04-30] MEDS ORDERED: ONDANSETRON PF 4 MG/2 ML VIAL. IV PRN (09:15)
[2018-04-30] MEDS: IPRATRPIUM/ALBUTEROL 0.5/2.5MG 3 ML NEBU. NEB SCH ×3 (11:15→20:07)
--- NOTE | 2018-04-30 11:34 | PDOC ---
Subjective: Subjective: Had a stool, abd pain better after. Asks if he might have IBS. Denies use of pain meds at home. Objective: Objective: Plans to transfer out of ICU. Per RN - ate some applesauce this morning, complains of abd pain, resolved w/ Lortab. Vital Signs: Vital Signs Date Time Temp Pulse Resp B/P (MAP) Pulse Ox O2 Delivery O2 Flow Rate FiO2 04/30/18 11:26 22 Room Air 04/30/18 11:17 98 04/30/18 11:00 83 160/109 (126) 04/30/18 08:00 99.5 99.5 Labs: Laboratory Tests Test 04/29/18 13:25 04/29/18 15:55 04/30/18 04:00 Troponin I Quantitative 0.117 ng/mL Nasal Screen MRSA (PCR) Negative Sodium Level 137 mmol/L Potassium Level 2.6 mmol/L Chloride Level 95 mmol/L Carbon Dioxide Level 32 mmol/L Anion Gap 10 Blood Urea Nitrogen 11 mg/dL Creatinine 1.3 mg/dL Estimated GFR (Cockcroft-Gault) 63.6 Glucose Level 108 mg/dL Calcium Level 9.1 mg/dL Magnesium Level 2.0 mg/dL Imaging: Echocardiogram <Conclusion> The left ventricular systolic function is normal. The Ejection Fraction is 65-70%. There is moderate concentric left ventricular hypertrophy. Bicuspid aortic valve with mild aortic stenosis. Trace mitral regurgitation. Trace tricuspid regurgitation. There is no evidence of significant pericardial effusion. PE: GEN: NAD LUNGS: +breathing treatment HEART: RRR ABD: soft NEURO/PSYCH: A & O 3 A/P: Abd pain - improved HTN, hypokalemia -- Pain better after stooling. Continue treatment for heartburn and constipation. Try dicyclomine PRN. BEVERLY VANG Apr 30, 2018 11:34
[2018-04-30] MEDS ORDERED: DICYCLOMINE HCL 10 MG CAPSULE PO PRN (11:45)
[2018-04-30 12:13] LABS: CALCIUM 9.3 mg/dL (8.5-10.1); CREATININE 1.2 mg/dL (0.7-1.3); GFR 69.7
--- NOTE | 2018-04-30 12:26 | PDOC ---
PROGRESS NOTES Chief Complaint Chief Complaint acute abdominal pain with constipation likely malignant hypertension, emergency hypertension acute renal failure, vasomotor critical hypokalemia troponinemia, demand, social anxiety disorder, lives with his mother, is unemployed, watches TV normally tobacco use disorder prior noncompliance with htn care dental caries copd plan: fu with card, off cardine drip cont coreg, hydralazine, add labetolol prn add duoneb, albuterol prn fu with gi, on clear liquid diet, advance as tolerated if ok with gi replete K, repeat bmp normal now ok transfer out of ICU sw fu dvt ppx History of Present Illness History of Present Illness ROS: no fever, chills, sob or chest pain icu off cardine drip , bp still high has cough, smoker not taking HTN meds at home no insurance K still low at am cr better left side abd pain, better with BM Vitals Vitals Vital Signs Date Time Temp Pulse Resp B/P (MAP) Pulse Ox O2 Delivery O2 Flow Rate FiO2 04/30/18 11:26 22 Room Air 04/30/18 11:17 98 04/30/18 11:00 83 160/109 (126) 04/30/18 08:00 99.5 99.5 Physical Exam General: Alert, Oriented X3, Cooperative, mild distress Heart: Regular rate, Normal S1, Normal S2, No murmurs, Other (no carotid bruits ) Lungs: Clear Abdomen: Normal bowel sounds, Soft, Other (left side mild abd pain) Extremities: No clubbing, No cyanosis Skin: No breakdown Labs LABS Laboratory Tests Test 04/29/18 13:25 04/29/18 15:55 04/30/18 04:00 04/30/18 11:50 Troponin I Quantitative 0.117 ng/mL (0.000-0.055) Nasal Screen MRSA (PCR) Negative (Negative) Sodium Level 137 mmol/L (136-145) 137 mmol/L (136-145) Potassium Level 2.6 mmol/L (3.5-5.1) 4.0 mmol/L (3.5-5.1) Chloride Level 95 mmol/L (98-107) 100 mmol/L (98-107) Carbon Dioxide Level 32 mmol/L (21-32) 31 mmol/L (21-32) Anion Gap 10 (6-14) 6 (6-14) Blood Urea Nitrogen 11 mg/dL (8-26) 10 mg/dL (8-26) Creatinine 1.3 mg/dL (0.7-1.3) 1.2 mg/dL (0.7-1.3) Estimated GFR (Cockcroft-Gault) 63.6 69.7 Glucose Level 108 mg/dL (70-99) 103 mg/dL (70-99) Calcium Level 9.1 mg/dL (8.5-10.1) 9.3 mg/dL (8.5-10.1) Magnesium Level 2.0 mg/dL (1.8-2.4) Assessment and Plan Assessmemt and Plan Problems Medical Problems: (1) Colitis Status: Acute (2) Elevated troponin Status: Acute (3) Hypertensive emergency Status: Acute (4) Hypokalemia Status: Acute Comment Review of Relevant I have reviewed the following items rupinder (where applicable) has been applied. Labs Laboratory Tests Test 04/29/18 07:30 04/29/18 07:39 04/29/18 10:30 04/29/18 13:25 White Blood Count 13.9 x10^3/uL (4.0-11.0) Red Blood Count 5.62 x10^6/uL (4.30-5.70) Hemoglobin 16.3 g/dL (13.0-17.5) Hematocrit 46.3 % (39.0-53.0) Mean Corpuscular Volume 82 fL (79-100) Mean Corpuscular Hemoglobin 29 pg (25-35) Mean Corpuscular Hemoglobin Concent 35 g/dL (31-37) Red Cell Distribution Width 14.4 % (11.5-14.5) Platelet Count 251 x10^3/uL (140-400) Neutrophils (%) (Auto) 77 % (31-73) Lymphocytes (%) (Auto) 13 % (24-48) Monocytes (%) (Auto) 6 % (0-9) Eosinophils (%) (Auto) 4 % (0-3) Basophils (%) (Auto) 1 % (0-3) Neutrophils # (Auto) 10.7 x10^3uL (1.8-7.7) Lymphocytes # (Auto) 1.7 x10^3/uL (1.0-4.8) Monocytes # (Auto) 0.8 x10^3/uL (0.0-1.1) Eosinophils # (Auto) 0.5 x10^3/uL (0.0-0.7) Basophils # (Auto) 0.1 x10^3/uL (0.0-0.2) Prothrombin Time 12.3 SEC (11.7-14.0) Prothromb Time International Ratio 1.0 (0.8-1.1) Sodium Level 139 mmol/L (136-145) Potassium Level 2.1 mmol/L (3.5-5.1) Chloride Level 92 mmol/L (98-107) Carbon Dioxide Level 34 mmol/L (21-32) Anion Gap 13 (6-14) Blood Urea Nitrogen 16 mg/dL (8-26) Creatinine 1.6 mg/dL (0.7-1.3) Estimated GFR (Cockcroft-Gault) 50.0 BUN/Creatinine Ratio 10 (6-20) Glucose Level 107 mg/dL (70-99) Lactic Acid Level 1.4 mmol/L (0.4-2.0) Calcium Level 9.5 mg/dL (8.5-10.1) Magnesium Level 2.1 mg/dL (1.8-2.4) Total Bilirubin 0.5 mg/dL (0.2-1.0) Aspartate Amino Transf (AST/SGOT) 23 U/L (15-37) Alanine Aminotransferase (ALT/SGPT) 26 U/L (16-63) Alkaline Phosphatase 116 U/L (46-116) Creatine Kinase 80 U/L (39-308) Creatine Kinase MB (Mass) 1.4 ng/mL (0.0-3.6) Creatine Kinase MB Relative Index 1.8 % (0-4) Troponin I Quantitative 0.116 ng/mL (0.000-0.055) 0.115 ng/mL (0.000-0.055) 0.117 ng/mL (0.000-0.055) Total Protein 8.7 g/dL (6.4-8.2) Albumin 4.3 g/dL (3.4-5.0) Albumin/Globulin Ratio 1.0 (1.0-1.7) Lipase 180 U/L (73-393) Urine Collection Type Unknown Urine Color Yellow Urine Clarity Clear Urine pH 6.5 Urine Specific [place] 1.020 Urine Protein >=300 mg/dL (NEG-TRACE) Urine Glucose (UA) Negative mg/dL (NEG) Urine Ketones (Stick) Negative mg/dL (NEG) Urine Blood Negative (NEG) Urine Nitrite Negative (NEG) Urine Bilirubin Negative (NEG) Urine Urobilinogen Dipstick 0.2 mg/dL (0.2 mg/dL) Urine Leukocyte Esterase Negative (NEG) Urine RBC 0 /HPF (0-2) Urine WBC 1-4 /HPF (0-4) Urine Squamous Epithelial Cells Occ /LPF Urine Bacteria Few /HPF (0-FEW) Urine Opiates Screen Pos (NEG) Urine Methadone Screen Neg (NEG) Urine Barbiturates Neg (NEG) Urine Phencyclidine Screen Neg (NEG) Urine Amphetamine/Methamphetamine Neg (NEG) Urine Benzodiazepines Screen Pos (NEG) Urine Cocaine Screen Neg (NEG) Urine Cannabinoids Screen Neg (NEG) Urine Ethyl Alcohol Neg (NEG) Test 04/29/18 15:55 04/30/18 04:00 04/30/18 11:50 Nasal Screen MRSA (PCR) Negative (Negative) Sodium Level 137 mmol/L (136-145) 137 mmol/L (136-145) Potassium Level 2.6 mmol/L (3.5-5.1) 4.0 mmol/L (3.5-5.1) Chloride Level 95 mmol/L (98-107) 100 mmol/L (98-107) Carbon Dioxide Level 32 mmol/L (21-32) 31 mmol/L (21-32) Anion Gap 10 (6-14) 6 (6-14) Blood Urea Nitrogen 11 mg/dL (8-26) 10 mg/dL (8-26) Creatinine 1.3 mg/dL (0.7-1.3) 1.2 mg/dL (0.7-1.3) Estimated GFR (Cockcroft-Gault) 63.6 69.7 Glucose Level 108 mg/dL (70-99) 103 mg/dL (70-99) Calcium Level 9.1 mg/dL (8.5-10.1) 9.3 mg/dL (8.5-10.1) Magnesium Level 2.0 mg/dL (1.8-2.4) Laboratory Tests Test 04/29/18 13:25 04/29/18 15:55 04/30/18 04:00 04/30/18 11:50 Troponin I Quantitative 0.117 ng/mL (0.000-0.055) Nasal Screen MRSA (PCR) Negative (Negative) Sodium Level 137 mmol/L (136-145) 137 mmol/L (136-145) Potassium Level 2.6 mmol/L (3.5-5.1) 4.0 mmol/L (3.5-5.1) Chloride Level 95 mmol/L (98-107) 100 mmol/L (98-107) Carbon Dioxide Level 32 mmol/L (21-32) 31 mmol/L (21-32) Anion Gap 10 (6-14) 6 (6-14) Blood Urea Nitrogen 11 mg/dL (8-26) 10 mg/dL (8-26) Creatinine 1.3 mg/dL (0.7-1.3) 1.2 mg/dL (0.7-1.3) Estimated GFR (Cockcroft-Gault) 63.6 69.7 Glucose Level 108 mg/dL (70-99) 103 mg/dL (70-99) Calcium Level 9.1 mg/dL (8.5-10.1) 9.3 mg/dL (8.5-10.1) Magnesium Level 2.0 mg/dL (1.8-2.4) Medications Current Medications Ondansetron HCl (Zofran) 4 mg 1X ONCE IV Last administered on 04/29/18at 07:50 ; Start 04/29/18 at 07:30; Stop 04/29/18 at 07:44; Status DC Famotidine (Pepcid Vial) 20 mg 1X ONCE IVP Last administered on 04/29/18 07: 52; Start 04/29/18 at 07:30; Stop 04/29/18 at 07:44; Status DC Ketorolac Tromethamine (Toradol 30mg Vial) 15 mg 1X ONCE IV Last administered on 04/29/18at 07:53; Start 04/29/18 at 07:30; Stop 04/29/18 at 07:44; Status DC Sodium Chloride 1,000 ml @ 1,000 mls/hr 1X ONCE IV Last administered on at 07:48; Start 04/29/18 at 07:30; Stop 04/29/18 at 08:29; Status DC Iohexol (Omnipaque 300 Mg/ml) 75 ml 1X ONCE IV Last administered on 04/29/18at 09:12; Start 04/29/18 at 08:15; Stop 04/29/18 at 08:30; Status DC Iohexol (Omnipaque 240 Mg/ml) 50 ml 1X ONCE PO Last administered on 04/29/18at 08:15; Start 04/29/18 at 08:15; Stop 04/29/18 at 08:30; Status DC Aspirin (Shelbie Aspirin) 325 mg 1X ONCE PO Last administered on 04/29/18at 08:53 ; Start 04/29/18 at 08:30; Stop 04/29/18 at 08:31; Status DC Labetalol HCl (Normodyne Iv Push) 20 mg 1X ONCE IVP Last administered on at 08:55; Start 04/29/18 at 08:30; Stop 04/29/18 at 08:31; Status DC Potassium Chloride/Sodium Chloride 1,000 ml @ 150 mls/hr 1X ONCE IV Last administered on 04/29/18at 08:56; Start 04/29/18 at 08:30; Stop 04/29/18 at 15:09 ; Status DC Ceftriaxone Sodium 50 ml @ 100 mls/hr 1X ONCE IV Last administered on at 11:29; Start 04/29/18 at 10:00; Stop 04/29/18 at 10:29; Status DC Metronidazole 100 ml @ 100 mls/hr 1X ONCE IV Last administered on 04/29/18at 12:25; Start 04/29/18 at 10:00; Stop 04/29/18 at 10:59; Status DC Labetalol HCl (Normodyne Iv Push) 20 mg 1X ONCE IVP Last administered on at 10:48; Start 04/29/18 at 10:00; Stop 04/29/18 at 10:04; Status DC Ondansetron HCl (Zofran) 4 mg PRN Q8HRS PRN IV NAUSEA/VOMITING Last administered on 04/29/18at 15:02; Start 04/29/18 at 10:15; Stop 04/29/18 at 20:44 ; Status DC Fentanyl Citrate (Fentanyl 2ml Vial) 50 mcg PRN Q2HR PRN IV PAIN Last administered on 04/29/18 21:07; Start 04/29/18 at 10:15; Stop 04/30/18 at 10:14 ; Status DC Nicotine (Nicoderm Cq 21mg) 1 patch 1X ONCE TD Last administered on 04/29/18at 10:46; Start 04/29/18 at 10:15; Stop 04/29/18 at 10:16; Status DC Potassium Chloride (Klor-Con) 40 meq 1X ONCE PO Last administered on at 11:29; Start 04/29/18 at 10:15; Stop 04/29/18 at 10:16; Status DC Nicardipine HCl 50 mg/Sodium Chloride 270 ml @ 27 mls/hr CONT PRN IV SEE I/O RECORD Last administered on 04/29/18at 21:17; Start 04/29/18 at 11:30 Hydralazine HCl (Apresoline) 25 mg BID PO Last administered on 04/30/18at 08:06 ; Start 04/29/18 at 12:30 Carvedilol (Coreg) 6.25 mg BIDWMEALS PO Last administered on 04/30/18 08:08; Start 04/29/18 at 17:00; Stop 04/30/18 at 08:49; Status DC Pantoprazole Sodium (Protonix) 40 mg DAILYAC PO Last administered on 04/30/18 08:07; Start 04/29/18 at 16:30 Bisacodyl (Dulcolax Tab) 10 mg 1X ONCE PO Last administered on 04/29/18at 15:00 ; Start 04/29/18 at 13:30; Stop 04/29/18 at 13:31; Status DC Polyethylene Glycol (miraLAX PACKET) 17 gm DAILY PO Last administered on at 08:10; Start 04/29/18 at 14:00 Potassium Chloride (Klor-Con) 40 meq 1X ONCE PO Last administered on at 15:00; Start 04/29/18 at 13:30; Stop 04/29/18 at 13:35; Status DC Potassium Chloride (Klor-Con) 40 meq DAILYWBKFT PO Last administered on at 08:10; Start 04/30/18 at 08:00 Ondansetron HCl (Zofran) 4 mg PRN Q6HRS PRN IV NAUSEA/VOMITING Last administered on 04/29/18at 21:08; Start 04/29/18 at 20:45; Stop 04/30/18 at 11:26 ; Status DC Acetaminophen/ Hydrocodone Bitart (Lortab 5/325) 1 tab PRN Q3HRS PRN PO MODERATE PAIN Last administered on 04/30/18at 11:26; Start 04/30/18 at 01:00 Potassium Chloride/Sodium Chloride 1,000 ml @ 250 mls/hr Q4H IV Last administered on 04/30/18at 05:33; Start 04/30/18 at 06:00; Stop 04/30/18 at 09:59 ; Status DC Potassium Chloride (Klor-Con) 40 meq 1X ONCE PO Last administered on at 05:43; Start 04/30/18 at 06:00; Stop 04/30/18 at 06:01; Status DC Potassium Chloride (Klor-Con) 40 meq 1X ONCE PO Last administered on at 08:05; Start 04/30/18 at 07:30; Stop 04/30/18 at 07:31; Status DC Carvedilol (Coreg) 12.5 mg BIDWMEALS PO ; Start 04/30/18 at 17:00 Carvedilol (Coreg) 6.25 mg ONCE ONCE PO Last administered on 04/30/18at 09:08; Start 04/30/18 at 09:00; Stop 04/30/18 at 09:01; Status DC Acetaminophen (Tylenol) 650 mg PRN Q6HRS PRN PO FEVER; Start 04/30/18 at 09:15 Ondansetron HCl (Zofran) 4 mg PRN Q6HRS PRN IV NAUSEA/VOMITING; Start 04/30/18 at 09:15 Morphine Sulfate (Morphine Sulfate) 2 mg PRN Q2HR PRN IV MODERATE TO SEVERE PAIN; Start 04/30/18 at 09:15 Tramadol HCl (Ultram) 50 mg PRN Q6HRS PRN PO MILD TO MODERATE PAIN; Start 04/30 at 09:15 Docusate Sodium (Colace) 100 mg PRN DAILY PRN PO CONSTIPATION; Start 04/30/18 at 09:15 Albuterol/ Ipratropium (Duoneb) 3 ml RTQID NEB Last administered on 04/30/18at 11:15; Start 04/30/18 at 12:00 Albuterol Sulfate (Ventolin Neb Soln) 2.5 mg PRN Q2HR PRN NEB SHORTNESS OF BREATH; Start 04/30/18 at 09:15 Guaifenesin (Mucinex) 600 mg BID PO Last administered on 04/30/18at 10:25; Start 04/30/18 at 10:00 Dicyclomine HCl (Bentyl) 10 mg PRN QID PRN PO abd pain; Start 04/30/18 at 11:45 Vitals/I & O Vital Sign - Last 24 Hours 04/29/18 04/29/18 04/29/18 04/29/18 13:00 13:07 13:07 14:00 Pulse 88 84 82 Resp 16 20 16 B/P (MAP) 136/87 (103) 150/94 120/77 (91) Pulse Ox 100 99 99 O2 Delivery Room Air Room Air Room Air 04/29/18 04/29/18 04/29/18 04/29/18 15:00 16:00 16:00 16:17 Temp 97.8 97.8 Pulse 90 93 Resp 18 18 16 B/P (MAP) 116/71 (86) 144/88 (106) Pulse Ox 100 99 100 O2 Delivery Room Air Room Air Room Air Room Air 04/29/18 04/29/18 04/29/18 04/29/18 16:18 17:00 18:00 18:47 Pulse 94 93 84 Resp 16 18 16 B/P (MAP) 144/88 140/91 (107) 156/102 (120) Pulse Ox 97 98 98 O2 Delivery Room Air Room Air Room Air 04/29/18 04/29/18 04/29/18 04/29/18 19:00 19:17 20:00 20:00 Temp 97.9 97.9 Pulse 87 88 Resp 12 20 22 B/P (MAP) 151/108 (122) 146/91 (109) Pulse Ox 99 99 97 O2 Delivery Room Air Room Air Room Air Room Air 04/29/18 04/29/18 04/29/18 04/29/18 21:00 21:07 21:08 22:00 Pulse 88 85 83 Resp 26 32 16 B/P (MAP) 149/85 (106) 149/65 146/90 (108) Pulse Ox 99 99 97 O2 Delivery Room Air Room Air Room Air 04/29/18 04/29/18 04/30/18 04/30/18 23:00 23:59 00:00 00:57 Temp 98.1 98.1 Pulse 95 95 Resp 38 23 28 B/P (MAP) 142/92 (109) 144/105 (118) Pulse Ox 97 99 99 O2 Delivery Room Air Room Air Room Air Room Air 04/30/18 04/30/18 04/30/18 04/30/18 01:00 02:00 03:00 04:00 Temp 98.2 98.2 Pulse 96 89 102 90 Resp 24 21 11 11 B/P (MAP) 161/99 (119) 128/76 (93) 153/100 (117) 150/102 (118) Pulse Ox 98 99 99 97 O2 Delivery Room Air Room Air Room Air Room Air 04/30/18 04/30/18 04/30/18 04/30/18 04:00 04:11 05:00 05:11 Pulse 89 Resp 14 12 12 B/P (MAP) 131/74 (93) Pulse Ox 100 95 95 O2 Delivery Room Air Room Air Room Air 04/30/18 04/30/18 04/30/18 04/30/18 06:00 07:00 08:00 08:00 Temp 99.5 99.5 Pulse 88 84 92 Resp 13 15 13 B/P (MAP) 158/101 (120) 160/109 (126) 168/102 (124) Pulse Ox 99 98 100 O2 Delivery Room Air Room Air Room Air Room Air 04/30/18 04/30/18 04/30/18 04/30/18 08:06 08:08 08:09 09:00 Pulse 95 95 84 Resp 14 18 B/P (MAP) 168/102 168/102 166/118 (134) Pulse Ox 97 O2 Delivery Room Air Room Air 04/30/18 04/30/18 04/30/18 04/30/18 09:08 09:11 10:00 11:00 Pulse 84 77 83 Resp 13 21 B/P (MAP) 166/118 151/109 (123) 160/109 (126) Pulse Ox 98 98 O2 Delivery Room Air Room Air Room Air 04/30/18 04/30/18 11:17 11:26 Resp 22 Pulse Ox 98 O2 Delivery Room Air Room Air Intake and Output 04/29/18 04/29/18 04/30/18 15:00 23:00 07:00 Intake Total 1200 ml 1050 ml Output Total 250 ml 1025 ml 1250 ml Balance 950 ml 25 ml -1250 ml Nutrition Consultation Dietary Evaluation: Recommendations by RD: Protein supplementation Comments: Advance diet as able to goal diet cardiac Will add Ensure Clear TID Expected Outcomes/Goals: Diet advancement Interpretation of weight loss: >5% in 1 month Malnutrition Findings: Weight Status: Appropriate AUTUMN MEDINA MD Apr 30, 2018 12:26
[2018-04-30] MEDS: ENOXAPARIN 40 MG/0.4 ML SYRINGE. SQ SCH (14:37)
[2018-04-30] MEDS: NICOTINE 21MG PATCH. TD PRN (15:19)
[2018-04-30] MEDS: LABETALOL 20 MG/4 ML DISP.SYRIN. IVP PRN (17:35)
[2018-05-01] VITALS (7 sets, daily range): BP systolic 166–180; BP diastolic 112–127
[2018-05-01] MEDS: LABETALOL 20 MG/4 ML DISP.SYRIN. IVP PRN (02:56)
[2018-05-01] MEDS: HYDROcodone/APAP 5/325MG 1 TAB TABLET PO PRN ×3 (03:02→15:02)
[2018-05-01 05:12] LABS: BASO # 0.1 x10^3/uL (0.0-0.2); BASO % 1 % (0-3); EOS # 0.2 x10^3/uL (0.0-0.7); EOS % 1 % (0-3); HEMATOCRIT 33.8 % (39.0-53.0); HEMOGLOBIN 11.9 g/dL (13.0-17.5); LYMPH # 1.1 x10^3/uL (1.0-4.8); LYMPH % 7 % (24-48); MEAN CORPUSCULAR HEMOGLOBIN 29 pg (25-35); MEAN CORPUSCULAR HGB CONC 35 g/dL (31-37); MEAN CORPUSCULAR VOLUME 84 fL (79-100); MONO % 7 % (0-9); NEUT % 85 % (31-73); PLATELET COUNT 176 x10^3/uL (140-400); RED BLOOD COUNT 4.04 x10^6/uL (4.30-5.70); RED CELL DISTRIBUTION WIDTH 14.4 % (11.5-14.5); WHITE BLOOD COUNT 15.3 x10^3/uL (4.0-11.0)
[2018-05-01 05:25] LABS: CALCIUM 9.2 mg/dL (8.5-10.1); CREATININE 1.3 mg/dL (0.7-1.3); GFR 63.6; POTASSIUM 3.2 mmol/L (3.5-5.1)
[2018-05-01] MEDS: PANTOPRAZOLE 40 MG TABLET.DR. PO SCH ×2 (06:53→08:23)
[2018-05-01] MEDS: IPRATRPIUM/ALBUTEROL 0.5/2.5MG 3 ML NEBU. NEB SCH ×4 (07:12→20:08)
[2018-05-01 07:24] LABS: % EOS 1 % (0-5); % LYMPHS 6 % (24-48); % MONOS 7 % (0-10); % SEGS 86 % (35-66)
[2018-05-01 07:25] LABS: PLT ESTIMATE ADEQUATE (ADEQUATE)
[2018-05-01] MEDS: CARVEDILOL 6.25 MG TABLET. PO SCH (08:22)
[2018-05-01] MEDS: POTASSIUM CHLORIDE 20 MEQ TABLET.ER. PO SCH (08:23)
[2018-05-01] MEDS: hydrALAZINE 25 MG TABLET PO SCH (08:23)
[2018-05-01] MEDS: POLYETHYLENE GLYCOL 3350 17 GM PACKET. PO SCH (08:24)
--- NOTE | 2018-05-01 10:28 | PDOC ---
Subjective: Subjective: Left-sided abd pain - better than it was. Mother present - has questions about seeing social work to help him establish care w/ a physician as outpt as "private pay." She says he hasn't worked in [employer] and c/o "pain all over" when he worked at [employer]. Has c/o abd pain for about a month. Objective: Objective: Reviewed w/ RN - wanting Lortab, c/o loose stools. Dicyclomine not given. Has remained on clear liquids - had orders to [facility] on 04/29. Vital Signs: Vital Signs Date Time Temp Pulse Resp B/P (MAP) Pulse Ox O2 Delivery O2 Flow Rate FiO2 05/01/18 08:23 87 173/118 05/01/18 08:07 Room Air 05/01/18 07:13 98 05/01/18 07:00 97.9 18 97.9 Labs: Laboratory Tests Test 04/30/18 11:50 05/01/18 04:05 Sodium Level 137 mmol/L 136 mmol/L Potassium Level 4.0 mmol/L 3.2 mmol/L Chloride Level 100 mmol/L 99 mmol/L Carbon Dioxide Level 31 mmol/L 25 mmol/L Anion Gap 6 12 Blood Urea Nitrogen 10 mg/dL 13 mg/dL Creatinine 1.2 mg/dL 1.3 mg/dL Estimated GFR (Cockcroft-Gault) 69.7 63.6 Glucose Level 103 mg/dL 88 mg/dL Calcium Level 9.3 mg/dL 9.2 mg/dL White Blood Count 15.3 x10^3/uL Red Blood Count 4.04 x10^6/uL Hemoglobin 11.9 g/dL Hematocrit 33.8 % Mean Corpuscular Volume 84 fL Mean Corpuscular Hemoglobin 29 pg Mean Corpuscular Hemoglobin Concent 35 g/dL Red Cell Distribution Width 14.4 % Platelet Count 176 x10^3/uL Neutrophils (%) (Auto) 85 % Lymphocytes (%) (Auto) 7 % Monocytes (%) (Auto) 7 % Eosinophils (%) (Auto) 1 % Basophils (%) (Auto) 1 % Neutrophils # (Auto) 13.0 x10^3uL Lymphocytes # (Auto) 1.1 x10^3/uL Monocytes # (Auto) 1.0 x10^3/uL Eosinophils # (Auto) 0.2 x10^3/uL Basophils # (Auto) 0.1 x10^3/uL Segmented Neutrophils % 86 % Lymphocytes % 6 % Monocytes % 7 % Eosinophils % 1 % Platelet Estimate Adequate PE: GEN: NAD LUNGS: CTAB HEART: RRR ABD: vague left-sided discomfort NEURO/PSYCH: A & O 3 A/P: Abd pain - improved HTN, leukocytosis, hypokalemia -- Encouraged avoidance of Lortab, etc. and trial of dicyclomine for abd pain. Complained of loose stools to staff - back off on Miralax. Continue PPI. Mild drift in Hgb w/ hydration, no obvious bleeding, will check iron studies. BEVERLY VANG May 01, 2018 10:28
[2018-05-01] MEDS ORDERED: POLYETHYLENE GLYCOL 3350 17 GM PACKET. PO PRN (10:30)
--- NOTE | 2018-05-01 11:37 | PDOC ---
CARDIO Progress Notes Date and Time Date of Service 05/01/2018 Time of Evaluation 1133 Subjective Subjective: No Chest Pain, No shortness of breath, No Palpitations, No Dizziness Vitals Vitals Vital Signs Date Time Temp Pulse Resp B/P (MAP) Pulse Ox O2 Delivery O2 Flow Rate FiO2 05/01/18 11:00 98.1 87 20 166/112 (130) 98 Room Air 98.1 Weight Weight [ ] Input and Output Intake and Output Intake and Output 05/01/18 07:00 Intake Total 2080 ml Output Total 352 ml Balance 1728 ml Intake Oral 2080 ml Output Urine Total 351 ml Stool Total 1 ml # Voids 3 Laboratory Labs Laboratory Tests Test 04/30/18 11:50 05/01/18 04:05 Sodium Level 137 mmol/L (136-145) 136 mmol/L (136-145) Potassium Level 4.0 mmol/L (3.5-5.1) 3.2 mmol/L (3.5-5.1) Chloride Level 100 mmol/L (98-107) 99 mmol/L (98-107) Carbon Dioxide Level 31 mmol/L (21-32) 25 mmol/L (21-32) Anion Gap 6 (6-14) 12 (6-14) Blood Urea Nitrogen 10 mg/dL (8-26) 13 mg/dL (8-26) Creatinine 1.2 mg/dL (0.7-1.3) 1.3 mg/dL (0.7-1.3) Estimated GFR (Cockcroft-Gault) 69.7 63.6 Glucose Level 103 mg/dL (70-99) 88 mg/dL (70-99) Calcium Level 9.3 mg/dL (8.5-10.1) 9.2 mg/dL (8.5-10.1) White Blood Count 15.3 x10^3/uL (4.0-11.0) Red Blood Count 4.04 x10^6/uL (4.30-5.70) Hemoglobin 11.9 g/dL (13.0-17.5) Hematocrit 33.8 % (39.0-53.0) Mean Corpuscular Volume 84 fL (79-100) Mean Corpuscular Hemoglobin 29 pg (25-35) Mean Corpuscular Hemoglobin Concent 35 g/dL (31-37) Red Cell Distribution Width 14.4 % (11.5-14.5) Platelet Count 176 x10^3/uL (140-400) Neutrophils (%) (Auto) 85 % (31-73) Lymphocytes (%) (Auto) 7 % (24-48) Monocytes (%) (Auto) 7 % (0-9) Eosinophils (%) (Auto) 1 % (0-3) Basophils (%) (Auto) 1 % (0-3) Neutrophils # (Auto) 13.0 x10^3uL (1.8-7.7) Lymphocytes # (Auto) 1.1 x10^3/uL (1.0-4.8) Monocytes # (Auto) 1.0 x10^3/uL (0.0-1.1) Eosinophils # (Auto) 0.2 x10^3/uL (0.0-0.7) Basophils # (Auto) 0.1 x10^3/uL (0.0-0.2) Segmented Neutrophils % 86 % (35-66) Lymphocytes % 6 % (24-48) Monocytes % 7 % (0-10) Eosinophils % 1 % (0-5) Platelet Estimate Adequate (ADEQUATE) Iron Level 5 ug/dL (65-175) Total Iron Binding Capacity 240 ug/dL (250-450) Iron Saturation 2 % (15-34) Physical Exam HEENT: NO Carotid Bruit Chest: Symmetric LUNGS: Clear to Auscultation Heart: S1S2, RRR, no gallops, other (tele: SR) Abdomen: Soft N/T Extremities: No Edema Neurology: alert, oriented, follow commands Assessment Assessment 1. hypertensive urgency --remains elevated; uptitrate BB and hydralazine --may need to add amlodipine --likely discharge tomorrow; discussed with mother who is nurse; she will obtain f/u care for him 2. NSTEMI --demand mediated due to hypertensive urgency --TTE without WMA --hold further ASA due to history of GI distress 3. abdominal pain --per GI 4. tobacco abuse --smoking cessation advised 5. hypokalemia --being repleted 6. ABI --resolved 7. bicuspid aortic valve --patient advised --ongoing follow up with cardiology for monitoring advised as well as antibiotic prophylaxis; have discussed this with patient's mother ERAN ALVAREZ [place] [employer] H[employer]ESS May 01, 2018 11:37
[2018-05-01] MEDS ORDERED: ENALAPRILAT 1.25 MG/ML VIAL. IVP PRN (11:45)
[2018-05-01] MEDS ORDERED: POTASSIUM CHLORIDE 20 MEQ TABLET.ER. PO ONE (12:00)
[2018-05-01] MEDS ORDERED: CARVEDILOL 12.5 MG TABLET. PO ONE (12:00)
[2018-05-01] MEDS: ENOXAPARIN 40 MG/0.4 ML SYRINGE. SQ SCH (12:00)
[2018-05-01] MEDS: NICOTINE 21MG PATCH. TD PRN (12:05)
[2018-05-01] MEDS ORDERED: POLYETHYLENE GLYCOL 3350 238 GM POWDER PO ONE (12:30)
[2018-05-01] MEDS ORDERED: BISACODYL 5 MG TABLET.DR. PO ONE (12:30)
[2018-05-01] MEDS ORDERED: MAGNESIUM CITRATE 296 ML SOLUTION. PO ONE (12:30)
--- NOTE | 2018-05-01 14:47 | PDOC ---
PROGRESS NOTES Chief Complaint Chief Complaint acute abdominal pain with constipation likely malignant hypertension, emergency hypertension acute renal failure, vasomotor critical hypokalemia troponinemia, demand, social anxiety disorder, lives with his mother, is unemployed, watches TV normally tobacco use disorder prior noncompliance with htn care dental caries copd bicuspid aortic valve iron deficiency chronic anemia with low iron plan: fu with card, off cardine drip increase coreg, hydralazine as per Card, add labetolol prn add duoneb, albuterol prn fu with gi, on clear liquid diet, advance as tolerated if ok with gi replete K, repeat bmp tmr iv iron , po when dc sw fu dvt ppx History of Present Illness History of Present Illness ROS: no fever, chills, sob or chest pain off cardine drip , bp still high has cough, smoker not taking HTN meds at home no insurance K still low at am cr better left side abd pain, better with BM Vitals Vitals Vital Signs Date Time Temp Pulse Resp B/P (MAP) Pulse Ox O2 Delivery O2 Flow Rate FiO2 05/01/18 11:59 87 166/112 05/01/18 11:58 17 98 Room Air 05/01/18 11:00 98.1 98.1 Physical Exam General: Alert, Oriented X3, Cooperative, mild distress Heart: Regular rate, Normal S1, Normal S2, No murmurs, Other (no carotid bruits ) Lungs: Clear Abdomen: Normal bowel sounds, Soft, Other (left side mild abd pain) Extremities: No clubbing, No cyanosis Skin: No breakdown Labs LABS Laboratory Tests Test 05/01/18 04:05 White Blood Count 15.3 x10^3/uL (4.0-11.0) Red Blood Count 4.04 x10^6/uL (4.30-5.70) Hemoglobin 11.9 g/dL (13.0-17.5) Hematocrit 33.8 % (39.0-53.0) Mean Corpuscular Volume 84 fL (79-100) Mean Corpuscular Hemoglobin 29 pg (25-35) Mean Corpuscular Hemoglobin Concent 35 g/dL (31-37) Red Cell Distribution Width 14.4 % (11.5-14.5) Platelet Count 176 x10^3/uL (140-400) Neutrophils (%) (Auto) 85 % (31-73) Lymphocytes (%) (Auto) 7 % (24-48) Monocytes (%) (Auto) 7 % (0-9) Eosinophils (%) (Auto) 1 % (0-3) Basophils (%) (Auto) 1 % (0-3) Neutrophils # (Auto) 13.0 x10^3uL (1.8-7.7) Lymphocytes # (Auto) 1.1 x10^3/uL (1.0-4.8) Monocytes # (Auto) 1.0 x10^3/uL (0.0-1.1) Eosinophils # (Auto) 0.2 x10^3/uL (0.0-0.7) Basophils # (Auto) 0.1 x10^3/uL (0.0-0.2) Segmented Neutrophils % 86 % (35-66) Lymphocytes % 6 % (24-48) Monocytes % 7 % (0-10) Eosinophils % 1 % (0-5) Platelet Estimate Adequate (ADEQUATE) Sodium Level 136 mmol/L (136-145) Potassium Level 3.2 mmol/L (3.5-5.1) Chloride Level 99 mmol/L (98-107) Carbon Dioxide Level 25 mmol/L (21-32) Anion Gap 12 (6-14) Blood Urea Nitrogen 13 mg/dL (8-26) Creatinine 1.3 mg/dL (0.7-1.3) Estimated GFR (Cockcroft-Gault) 63.6 Glucose Level 88 mg/dL (70-99) Calcium Level 9.2 mg/dL (8.5-10.1) Iron Level 5 ug/dL (65-175) Total Iron Binding Capacity 240 ug/dL (250-450) Iron Saturation 2 % (15-34) Assessment and Plan Assessmemt and Plan Problems Medical Problems: (1) Colitis Status: Acute (2) Elevated troponin Status: Acute (3) Hypertensive emergency Status: Acute (4) Hypokalemia Status: Acute Comment Review of Relevant I have reviewed the following items rupinder (where applicable) has been applied. Labs Laboratory Tests Test 04/29/18 15:55 04/30/18 04:00 04/30/18 11:50 05/01/18 04:05 Nasal Screen MRSA (PCR) Negative (Negative) Sodium Level 137 mmol/L (136-145) 137 mmol/L (136-145) 136 mmol/L (136-145) Potassium Level 2.6 mmol/L (3.5-5.1) 4.0 mmol/L (3.5-5.1) 3.2 mmol/L (3.5-5.1) Chloride Level 95 mmol/L (98-107) 100 mmol/L (98-107) 99 mmol/L (98-107) Carbon Dioxide Level 32 mmol/L (21-32) 31 mmol/L (21-32) 25 mmol/L (21-32) Anion Gap 10 (6-14) 6 (6-14) 12 (6-14) Blood Urea Nitrogen 11 mg/dL (8-26) 10 mg/dL (8-26) 13 mg/dL (8-26) Creatinine 1.3 mg/dL (0.7-1.3) 1.2 mg/dL (0.7-1.3) 1.3 mg/dL (0.7-1.3) Estimated GFR (Cockcroft-Gault) 63.6 69.7 63.6 Glucose Level 108 mg/dL (70-99) 103 mg/dL (70-99) 88 mg/dL (70-99) Calcium Level 9.1 mg/dL (8.5-10.1) 9.3 mg/dL (8.5-10.1) 9.2 mg/dL (8.5-10.1) Magnesium Level 2.0 mg/dL (1.8-2.4) White Blood Count 15.3 x10^3/uL (4.0-11.0) Red Blood Count 4.04 x10^6/uL (4.30-5.70) Hemoglobin 11.9 g/dL (13.0-17.5) Hematocrit 33.8 % (39.0-53.0) Mean Corpuscular Volume 84 fL (79-100) Mean Corpuscular Hemoglobin 29 pg (25-35) Mean Corpuscular Hemoglobin Concent 35 g/dL (31-37) Red Cell Distribution Width 14.4 % (11.5-14.5) Platelet Count 176 x10^3/uL (140-400) Neutrophils (%) (Auto) 85 % (31-73) Lymphocytes (%) (Auto) 7 % (24-48) Monocytes (%) (Auto) 7 % (0-9) Eosinophils (%) (Auto) 1 % (0-3) Basophils (%) (Auto) 1 % (0-3) Neutrophils # (Auto) 13.0 x10^3uL (1.8-7.7) Lymphocytes # (Auto) 1.1 x10^3/uL (1.0-4.8) Monocytes # (Auto) 1.0 x10^3/uL (0.0-1.1) Eosinophils # (Auto) 0.2 x10^3/uL (0.0-0.7) Basophils # (Auto) 0.1 x10^3/uL (0.0-0.2) Segmented Neutrophils % 86 % (35-66) Lymphocytes % 6 % (24-48) Monocytes % 7 % (0-10) Eosinophils % 1 % (0-5) Platelet Estimate Adequate (ADEQUATE) Iron Level 5 ug/dL (65-175) Total Iron Binding Capacity 240 ug/dL (250-450) Iron Saturation 2 % (15-34) Laboratory Tests Test 05/01/18 04:05 White Blood Count 15.3 x10^3/uL (4.0-11.0) Red Blood Count 4.04 x10^6/uL (4.30-5.70) Hemoglobin 11.9 g/dL (13.0-17.5) Hematocrit 33.8 % (39.0-53.0) Mean Corpuscular Volume 84 fL (79-100) Mean Corpuscular Hemoglobin 29 pg (25-35) Mean Corpuscular Hemoglobin Concent 35 g/dL (31-37) Red Cell Distribution Width 14.4 % (11.5-14.5) Platelet Count 176 x10^3/uL (140-400) Neutrophils (%) (Auto) 85 % (31-73) Lymphocytes (%) (Auto) 7 % (24-48) Monocytes (%) (Auto) 7 % (0-9) Eosinophils (%) (Auto) 1 % (0-3) Basophils (%) (Auto) 1 % (0-3) Neutrophils # (Auto) 13.0 x10^3uL (1.8-7.7) Lymphocytes # (Auto) 1.1 x10^3/uL (1.0-4.8) Monocytes # (Auto) 1.0 x10^3/uL (0.0-1.1) Eosinophils # (Auto) 0.2 x10^3/uL (0.0-0.7) Basophils # (Auto) 0.1 x10^3/uL (0.0-0.2) Segmented Neutrophils % 86 % (35-66) Lymphocytes % 6 % (24-48) Monocytes % 7 % (0-10) Eosinophils % 1 % (0-5) Platelet Estimate Adequate (ADEQUATE) Sodium Level 136 mmol/L (136-145) Potassium Level 3.2 mmol/L (3.5-5.1) Chloride Level 99 mmol/L (98-107) Carbon Dioxide Level 25 mmol/L (21-32) Anion Gap 12 (6-14) Blood Urea Nitrogen 13 mg/dL (8-26) Creatinine 1.3 mg/dL (0.7-1.3) Estimated GFR (Cockcroft-Gault) 63.6 Glucose Level 88 mg/dL (70-99) Calcium Level 9.2 mg/dL (8.5-10.1) Iron Level 5 ug/dL (65-175) Total Iron Binding Capacity 240 ug/dL (250-450) Iron Saturation 2 % (15-34) Medications Current Medications Ondansetron HCl (Zofran) 4 mg 1X ONCE IV Last administered on 04/29/18at 07:50 ; Start 04/29/18 at 07:30; Stop 04/29/18 at 07:44; Status DC Famotidine (Pepcid Vial) 20 mg 1X ONCE IVP Last administered on 04/29/18at 07: 52; Start 04/29/18 at 07:30; Stop 04/29/18 at 07:44; Status DC Ketorolac Tromethamine (Toradol 30mg Vial) 15 mg 1X ONCE IV Last administered on 04/29/18at 07:53; Start 04/29/18 at 07:30; Stop 04/29/18 at 07:44; Status DC Sodium Chloride 1,000 ml @ 1,000 mls/hr 1X ONCE IV Last administered on at 07:48; Start 04/29/18 at 07:30; Stop 04/29/18 at 08:29; Status DC Iohexol (Omnipaque 300 Mg/ml) 75 ml 1X ONCE IV Last administered on 04/29/18at 09:12; Start 04/29/18 at 08:15; Stop 04/29/18 at 08:30; Status DC Iohexol (Omnipaque 240 Mg/ml) 50 ml 1X ONCE PO Last administered on 04/29/18at 08:15; Start 04/29/18 at 08:15; Stop 04/29/18 at 08:30; Status DC Aspirin (Shelbie Aspirin) 325 mg 1X ONCE PO Last administered on 04/29/18at 08:53 ; Start 04/29/18 at 08:30; Stop 04/29/18 at 08:31; Status DC Labetalol HCl (Normodyne Iv Push) 20 mg 1X ONCE IVP Last administered on at 08:55; Start 04/29/18 at 08:30; Stop 04/29/18 at 08:31; Status DC Potassium Chloride/Sodium Chloride 1,000 ml @ 150 mls/hr 1X ONCE IV Last administered on 04/29/18at 08:56; Start 04/29/18 at 08:30; Stop 04/29/18 at 15:09 ; Status DC Ceftriaxone Sodium 50 ml @ 100 mls/hr 1X ONCE IV Last administered on at 11:29; Start 04/29/18 at 10:00; Stop 04/29/18 at 10:29; Status DC Metronidazole 100 ml @ 100 mls/hr 1X ONCE IV Last administered on 04/29/18at 12:25; Start 04/29/18 at 10:00; Stop 04/29/18 at 10:59; Status DC Labetalol HCl (Normodyne Iv Push) 20 mg 1X ONCE IVP Last administered on at 10:48; Start 04/29/18 at 10:00; Stop 04/29/18 at 10:04; Status DC Ondansetron HCl (Zofran) 4 mg PRN Q8HRS PRN IV NAUSEA/VOMITING Last administered on 04/29/18at 15:02; Start 04/29/18 at 10:15; Stop 04/29/18 at 20:44 ; Status DC Fentanyl Citrate (Fentanyl 2ml Vial) 50 mcg PRN Q2HR PRN IV PAIN Last administered on 04/29/18 21:07; Start 04/29/18 at 10:15; Stop 04/30/18 at 10:14 ; Status DC Nicotine (Nicoderm Cq 21mg) 1 patch 1X ONCE TD Last administered on 04/29/18at 10:46; Start 04/29/18 at 10:15; Stop 04/29/18 at 10:16; Status DC Potassium Chloride (Klor-Con) 40 meq 1X ONCE PO Last administered on at 11:29; Start 04/29/18 at 10:15; Stop 04/29/18 at 10:16; Status DC Nicardipine HCl 50 mg/Sodium Chloride 270 ml @ 27 mls/hr CONT PRN IV SEE I/O RECORD Last administered on 04/29/18at 21:17; Start 04/29/18 at 11:30; Stop 04/30 at 12:23; Status DC Hydralazine HCl (Apresoline) 25 mg BID PO Last administered on 05/01/18at 08:23 ; Start 04/29/18 at 12:30; Stop 05/01/18 at 11:13; Status DC Carvedilol (Coreg) 6.25 mg BIDWMEALS PO Last administered on 04/30/18at 08:08; Start 04/29/18 at 17:00; Stop 04/30/18 at 08:49; Status DC Pantoprazole Sodium (Protonix) 40 mg DAILYAC PO Last administered on 05/01/18at 08:23; Start 04/29/18 at 16:30 Bisacodyl (Dulcolax Tab) 10 mg 1X ONCE PO Last administered on 04/29/18at 15:00 ; Start 04/29/18 at 13:30; Stop 04/29/18 at 13:31; Status DC Polyethylene Glycol (miraLAX PACKET) 17 gm DAILY PO Last administered on at 08:24; Start 04/29/18 at 14:00; Stop 05/01/18 at 10:27; Status DC Potassium Chloride (Klor-Con) 40 meq 1X ONCE PO Last administered on at 15:00; Start 04/29/18 at 13:30; Stop 04/29/18 at 13:35; Status DC Potassium Chloride (Klor-Con) 40 meq DAILYWBKFT PO Last administered on at 08:23; Start 04/30/18 at 08:00 Ondansetron HCl (Zofran) 4 mg PRN Q6HRS PRN IV NAUSEA/VOMITING Last administered on 04/29/18at 21:08; Start 04/29/18 at 20:45; Stop 04/30/18 at 11:26 ; Status DC Acetaminophen/ Hydrocodone Bitart (Lortab 5/325) 1 tab PRN Q3HRS PRN PO MODERATE PAIN Last administered on 05/01/18at 11:58; Start 04/30/18 at 01:00 Potassium Chloride/Sodium Chloride 1,000 ml @ 250 mls/hr Q4H IV Last administered on 04/30/18at 05:33; Start 04/30/18 at 06:00; Stop 04/30/18 at 09:59 ; Status DC Potassium Chloride (Klor-Con) 40 meq 1X ONCE PO Last administered on at 05:43; Start 04/30/18 at 06:00; Stop 04/30/18 at 06:01; Status DC Potassium Chloride (Klor-Con) 40 meq 1X ONCE PO Last administered on at 08:05; Start 04/30/18 at 07:30; Stop 04/30/18 at 07:31; Status DC Carvedilol (Coreg) 12.5 mg BIDWMEALS PO Last administered on 05/01/18at 08:22; Start 04/30/18 at 17:00; Stop 05/01/18 at 11:13; Status DC Carvedilol (Coreg) 6.25 mg ONCE ONCE PO Last administered on 04/30/18at 09:08; Start 04/30/18 at 09:00; Stop 04/30/18 at 09:01; Status DC Acetaminophen (Tylenol) 650 mg PRN Q6HRS PRN PO FEVER; Start 04/30/18 at 09:15 Ondansetron HCl (Zofran) 4 mg PRN Q6HRS PRN IV NAUSEA/VOMITING; Start 04/30/18 at 09:15 Morphine Sulfate (Morphine Sulfate) 2 mg PRN Q2HR PRN IV MODERATE TO SEVERE PAIN; Start 04/30/18 at 09:15 Tramadol HCl (Ultram) 50 mg PRN Q6HRS PRN PO MILD PAIN; Start 04/30/18 at 09:15 Docusate Sodium (Colace) 100 mg PRN DAILY PRN PO CONSTIPATION; Start 04/30/18 at 09:15 Albuterol/ Ipratropium (Duoneb) 3 ml RTQID NEB Last administered on 05/01/18at 11:27; Start 04/30/18 at 12:00 Albuterol Sulfate (Ventolin Neb Soln) 2.5 mg PRN Q2HR PRN NEB SHORTNESS OF BREATH; Start 04/30/18 at 09:15 Guaifenesin (Mucinex) 600 mg BID PO Last administered on 05/01/18at 08:23; Start 04/30/18 at 10:00 Dicyclomine HCl (Bentyl) 10 mg PRN QID PRN PO abd pain; Start 04/30/18 at 11:45 Labetalol HCl (Normodyne Iv Push) 20 mg PRN Q2HR PRN IVP HYPERTENSION, SEE COMMENTS Last administered on 05/01/18at 02:56; Start 04/30/18 at 12:30 Enoxaparin Sodium (Lovenox 40mg Syringe) 40 mg Q24H SQ Last administered on 05/01/18at 12:00; Start 04/30/18 at 13:00 Nicotine (Nicoderm Cq 21mg) 1 patch PRN DAILY PRN TD SMOKING CESSATION Last administered on 05/01/18at 12:05; Start 04/30/18 at 15:15 Polyethylene Glycol (miraLAX PACKET) 17 gm PRN DAILY PRN PO CONSTIPATION; Start 05/01/18 at 10:30 Carvedilol (Coreg) 25 mg BIDWMEALS PO ; Start 05/01/18 at 17:00 Hydralazine HCl (Apresoline) 50 mg BID PO ; Start 05/01/18 at 21:00 Potassium Chloride (Klor-Con) 40 meq 1X ONCE PO Last administered on at 11:59; Start 05/01/18 at 12:00; Stop 05/01/18 at 12:01; Status DC Carvedilol (Coreg) 12.5 mg 1X ONCE PO Last administered on 05/01/18at 11:59; Start 05/01/18 at 12:00; Stop 05/01/18 at 12:01; Status DC Iron Sucrose 200 mg/Sodium Chloride 110 ml @ 55 mls/hr DAILY IV ; Start at 13:00; Stop 05/03/18 at 12:59 Enalaprilat (Vasotec Inj) 1.25 mg PRN Q6HRS PRN IVP HYPERTENSION, SEE COMMENTS ; Start 05/01/18 at 11:45 Magnesium Citrate (Citroma) 296 ml 1X ONCE PO ; Start 05/01/18 at 12:30; Stop 05/01/18 at 12:36; Status DC Polyethylene Glycol (miraLAX Powder BULK BOTTLE) 238 gm 1X ONCE PO ; Start 05/01/18 at 12:30; Stop 05/01/18 at 12:36; Status DC Bisacodyl (Dulcolax Tab) 5 mg 1X ONCE PO ; Start 05/01/18 at 12:30; Stop at 12:36; Status DC Vitals/I & O Vital Sign - Last 24 Hours 04/30/18 04/30/18 04/30/18 04/30/18 14:50 15:19 15:34 17:34 Temp 97.9 97.9 Pulse 91 91 Resp 17 22 B/P (MAP) 177/128 (144) 201/141 Pulse Ox 99 99 O2 Delivery Room Air Room Air 04/30/18 04/30/18 04/30/18 04/30/18 17:35 19:00 19:33 19:34 Temp 97.9 97.9 Pulse 98 83 Resp 16 20 B/P (MAP) 201/148 161/115 (130) Pulse Ox 99 98 99 O2 Delivery Room Air Room Air Room Air 04/30/18 04/30/18 04/30/18 04/30/18 20:00 20:54 21:02 23:00 Temp 97.9 98.4 97.9 98.4 Pulse 83 83 94 Resp 16 16 B/P (MAP) 161/115 (130) 161/115 160/116 (131) Pulse Ox 99 98 O2 Delivery Room Air Room Air Room Air 04/30/18 05/01/18 05/01/18 05/01/18 23:07 02:56 03:02 03:03 Temp 97.9 98.1 97.9 98.1 Pulse 83 95 82 Resp 16 16 B/P (MAP) 161/115 (130) 173/127 173/127 (142) Pulse Ox 99 99 95 O2 Delivery Room Air Room Air Room Air 05/01/18 05/01/18 05/01/18 05/01/18 04:02 06:54 07:00 07:13 Temp 97.9 97.9 Pulse 92 87 Resp 16 18 B/P (MAP) 176/124 (141) 173/118 (136) Pulse Ox 95 98 98 O2 Delivery Room Air Room Air 05/01/18 05/01/18 05/01/18 05/01/18 08:07 08:22 08:23 11:00 Temp 98.1 98.1 Pulse 87 87 87 Resp 20 B/P (MAP) 173/118 173/118 166/112 (130) Pulse Ox 98 O2 Delivery Room Air Room Air 05/01/18 05/01/18 05/01/18 11:28 11:58 11:59 Pulse 87 Resp 17 B/P (MAP) 166/112 Pulse Ox 98 O2 Delivery Room Air Room Air Intake and Output 04/30/18 04/30/18 05/01/18 15:00 23:00 07:00 Intake Total 920 ml 860 ml 300 ml Output Total 350 ml 2 ml Balance 920 ml 510 ml 298 ml Nutrition Consultation Dietary Evaluation: Recommendations by RD: Protein supplementation Comments: Advance diet as able to goal diet cardiac Will add Ensure Clear TID Expected Outcomes/Goals: Diet advancement Interpretation of weight loss: >5% in 1 month Malnutrition Findings: Weight Status: Appropriate AUTUMN MEDINA MD May 01, 2018 14:47
[2018-05-01] MEDS: IRON SUCROSE COMPLEX 200 MG in IV NORMAL SALINE 100ML 100 ML IV SCH (15:03)
[2018-05-01] MEDS: CARVEDILOL 12.5 MG TABLET. PO SCH (17:13)
[2018-05-01] MEDS: amLODIPine BESYLATE 10 MG TABLET PO SCH (21:27)
[2018-05-02] VITALS (9 sets, daily range): BP systolic 118–161; BP diastolic 79–116
[2018-05-02 05:15] LABS: BASO % 1 % (0-3); EOS # 0.2 x10^3/uL (0.0-0.7); EOS % 2 % (0-3); HEMATOCRIT 35.6 % (39.0-53.0); HEMOGLOBIN 12.3 g/dL (13.0-17.5); LYMPH % 11 % (24-48); MEAN CORPUSCULAR HEMOGLOBIN 29 pg (25-35); MEAN CORPUSCULAR HGB CONC 35 g/dL (31-37); MEAN CORPUSCULAR VOLUME 85 fL (79-100); MONO # 0.6 x10^3/uL (0.0-1.1); MONO % 7 % (0-9); NEUT # 7.6 x10^3uL (1.8-7.7); NEUT % 80 % (31-73); PLATELET COUNT 202 x10^3/uL (140-400); RED BLOOD COUNT 4.19 x10^6/uL (4.30-5.70); RED CELL DISTRIBUTION WIDTH 14.5 % (11.5-14.5); WHITE BLOOD COUNT 9.6 x10^3/uL (4.0-11.0)
[2018-05-02 05:30] LABS: CALCIUM 9.2 mg/dL (8.5-10.1); CREATININE 1.3 mg/dL (0.7-1.3); GFR 63.6; POTASSIUM 3.2 mmol/L (3.5-5.1)
[2018-05-02] MEDS ORDERED: HYDROmorphone 2 MG/ML VIAL IV PRN (07:00)
[2018-05-02] MEDS ORDERED: MORPHINE SULFATE 2 MG/ML VIAL. IV PRN (07:00)
[2018-05-02] MEDS ORDERED: fentaNYL PF VIAL 100 MCG/2 ML VIAL IV PRN ×2 (07:00)
[2018-05-02] MEDS ORDERED: LIDOCAINE 1% PF 2 ML VIAL. ID PRN (07:00)
[2018-05-02] MEDS ORDERED: IV RINGERS,LACTATED 1000ML 1,000 ML IV SCH (07:00)
[2018-05-02] MEDS ORDERED: ONDANSETRON PF 4 MG/2 ML VIAL. IV PRN (07:00)
[2018-05-02] MEDS ORDERED: PROCHLORPERAZINE 10 MG/2 ML VIAL. IV PRN (07:00)
[2018-05-02] MEDS: IPRATRPIUM/ALBUTEROL 0.5/2.5MG 3 ML NEBU. NEB SCH ×4 (07:52→19:36)
[2018-05-02] MEDS: IRON SUCROSE COMPLEX 200 MG in IV NORMAL SALINE 100ML 100 ML IV SCH (09:11)
[2018-05-02] MEDS: CARVEDILOL 12.5 MG TABLET. PO SCH ×2 (09:12→18:14)
[2018-05-02] MEDS: amLODIPine BESYLATE 10 MG TABLET PO SCH (09:12)
[2018-05-02] MEDS ORDERED: POTASSIUM CHLORIDE 20 MEQ TABLET.ER. PO ONE ×2 (10:30→11:00)
[2018-05-02] MEDS: IV NORMAL SALINE 1000ML BAG 1,000 ML IV SCH ×2 (11:28→19:26)
[2018-05-02] MEDS ORDERED: PROPOFOL 40 ML IV ONE (12:00)
[2018-05-02] MEDS ORDERED: LIDOCAINE 2% PF 2ML VIAL. ONE (12:01)
--- NOTE | 2018-05-02 12:18 | PDOC4 ---
PROCEDURE Procedure EGD anemia Anesthesia- propofol Findings: : normal esophagus; mild antral gastritis- no ulcers; mild duodenitis (bx) Plan- proceed with colonoscopy RAIMUNDO EDUARDO MD May 02, 2018 12:18
--- NOTE | 2018-05-02 12:55 | PDOC ---
PROGRESS NOTES Chief Complaint Chief Complaint acute abdominal pain with constipation likely malignant hypertension, emergency hypertension acute renal failure, vasomotor critical hypokalemia troponinemia, demand, social anxiety disorder, lives with his mother, is unemployed, watches TV normally tobacco use disorder prior noncompliance with htn care dental caries copd bicuspid aortic valve iron deficiency chronic anemia with low iron plan: fu with card, off cardine drip increase coreg, amlodipine, hydralazine as per Card, add labetolol prn add duoneb, albuterol prn fu with gi, on clear liquid diet, advance as tolerated if ok with gi replete K, repeat bmp tmr iv iron , po when dc sw fu dvt ppx EGD, COlonoscopy today with GI dc tmr History of Present Illness History of Present Illness ROS: no fever, chills, sob or chest pain off cardine drip , bp still high has cough, smoker not taking HTN meds at home no insurance K still low at am cr better to normal low iron, denies gib left side abd pain, better with BM Vitals Vitals Vital Signs Date Time Temp Pulse Resp B/P (MAP) Pulse Ox O2 Delivery O2 Flow Rate FiO2 05/02/18 11:18 Room Air 05/02/18 11:13 98.5 84 20 98 98.5 05/02/18 08:00 161/116 (131) Physical Exam General: Alert, Oriented X3, Cooperative, mild distress Heart: Regular rate, Normal S1, Normal S2, No murmurs, Other (no carotid bruits ) Lungs: Clear Abdomen: Normal bowel sounds, Soft, Other (left side mild abd pain) Extremities: No clubbing, No cyanosis Skin: No breakdown Labs LABS Laboratory Tests Test 05/02/18 04:30 White Blood Count 9.6 x10^3/uL (4.0-11.0) Red Blood Count 4.19 x10^6/uL (4.30-5.70) Hemoglobin 12.3 g/dL (13.0-17.5) Hematocrit 35.6 % (39.0-53.0) Mean Corpuscular Volume 85 fL (79-100) Mean Corpuscular Hemoglobin 29 pg (25-35) Mean Corpuscular Hemoglobin Concent 35 g/dL (31-37) Red Cell Distribution Width 14.5 % (11.5-14.5) Platelet Count 202 x10^3/uL (140-400) Neutrophils (%) (Auto) 80 % (31-73) Lymphocytes (%) (Auto) 11 % (24-48) Monocytes (%) (Auto) 7 % (0-9) Eosinophils (%) (Auto) 2 % (0-3) Basophils (%) (Auto) 1 % (0-3) Neutrophils # (Auto) 7.6 x10^3uL (1.8-7.7) Lymphocytes # (Auto) 1.0 x10^3/uL (1.0-4.8) Monocytes # (Auto) 0.6 x10^3/uL (0.0-1.1) Eosinophils # (Auto) 0.2 x10^3/uL (0.0-0.7) Basophils # (Auto) 0.0 x10^3/uL (0.0-0.2) Sodium Level 137 mmol/L (136-145) Potassium Level 3.2 mmol/L (3.5-5.1) Chloride Level 101 mmol/L (98-107) Carbon Dioxide Level 25 mmol/L (21-32) Anion Gap 11 (6-14) Blood Urea Nitrogen 10 mg/dL (8-26) Creatinine 1.3 mg/dL (0.7-1.3) Estimated GFR (Cockcroft-Gault) 63.6 Glucose Level 84 mg/dL (70-99) Calcium Level 9.2 mg/dL (8.5-10.1) Assessment and Plan Assessmemt and Plan Problems Medical Problems: (1) Colitis Status: Acute (2) Elevated troponin Status: Acute (3) Hypertensive emergency Status: Acute (4) Hypokalemia Status: Acute Comment Review of Relevant I have reviewed the following items rupinder (where applicable) has been applied. Labs Laboratory Tests Test 05/01/18 04:05 05/02/18 04:30 White Blood Count 15.3 x10^3/uL (4.0-11.0) 9.6 x10^3/uL (4.0-11.0) Red Blood Count 4.04 x10^6/uL (4.30-5.70) 4.19 x10^6/uL (4.30-5.70) Hemoglobin 11.9 g/dL (13.0-17.5) 12.3 g/dL (13.0-17.5) Hematocrit 33.8 % (39.0-53.0) 35.6 % (39.0-53.0) Mean Corpuscular Volume 84 fL (79-100) 85 fL (79-100) Mean Corpuscular Hemoglobin 29 pg (25-35) 29 pg (25-35) Mean Corpuscular Hemoglobin Concent 35 g/dL (31-37) 35 g/dL (31-37) Red Cell Distribution Width 14.4 % (11.5-14.5) 14.5 % (11.5-14.5) Platelet Count 176 x10^3/uL (140-400) 202 x10^3/uL (140-400) Neutrophils (%) (Auto) 85 % (31-73) 80 % (31-73) Lymphocytes (%) (Auto) 7 % (24-48) 11 % (24-48) Monocytes (%) (Auto) 7 % (0-9) 7 % (0-9) Eosinophils (%) (Auto) 1 % (0-3) 2 % (0-3) Basophils (%) (Auto) 1 % (0-3) 1 % (0-3) Neutrophils # (Auto) 13.0 x10^3uL (1.8-7.7) 7.6 x10^3uL (1.8-7.7) Lymphocytes # (Auto) 1.1 x10^3/uL (1.0-4.8) 1.0 x10^3/uL (1.0-4.8) Monocytes # (Auto) 1.0 x10^3/uL (0.0-1.1) 0.6 x10^3/uL (0.0-1.1) Eosinophils # (Auto) 0.2 x10^3/uL (0.0-0.7) 0.2 x10^3/uL (0.0-0.7) Basophils # (Auto) 0.1 x10^3/uL (0.0-0.2) 0.0 x10^3/uL (0.0-0.2) Segmented Neutrophils % 86 % (35-66) Lymphocytes % 6 % (24-48) Monocytes % 7 % (0-10) Eosinophils % 1 % (0-5) Platelet Estimate Adequate (ADEQUATE) Sodium Level 136 mmol/L (136-145) 137 mmol/L (136-145) Potassium Level 3.2 mmol/L (3.5-5.1) 3.2 mmol/L (3.5-5.1) Chloride Level 99 mmol/L (98-107) 101 mmol/L (98-107) Carbon Dioxide Level 25 mmol/L (21-32) 25 mmol/L (21-32) Anion Gap 12 (6-14) 11 (6-14) Blood Urea Nitrogen 13 mg/dL (8-26) 10 mg/dL (8-26) Creatinine 1.3 mg/dL (0.7-1.3) 1.3 mg/dL (0.7-1.3) Estimated GFR (Cockcroft-Gault) 63.6 63.6 Glucose Level 88 mg/dL (70-99) 84 mg/dL (70-99) Calcium Level 9.2 mg/dL (8.5-10.1) 9.2 mg/dL (8.5-10.1) Iron Level 5 ug/dL (65-175) Total Iron Binding Capacity 240 ug/dL (250-450) Iron Saturation 2 % (15-34) Laboratory Tests Test 05/02/18 04:30 White Blood Count 9.6 x10^3/uL (4.0-11.0) Red Blood Count 4.19 x10^6/uL (4.30-5.70) Hemoglobin 12.3 g/dL (13.0-17.5) Hematocrit 35.6 % (39.0-53.0) Mean Corpuscular Volume 85 fL (79-100) Mean Corpuscular Hemoglobin 29 pg (25-35) Mean Corpuscular Hemoglobin Concent 35 g/dL (31-37) Red Cell Distribution Width 14.5 % (11.5-14.5) Platelet Count 202 x10^3/uL (140-400) Neutrophils (%) (Auto) 80 % (31-73) Lymphocytes (%) (Auto) 11 % (24-48) Monocytes (%) (Auto) 7 % (0-9) Eosinophils (%) (Auto) 2 % (0-3) Basophils (%) (Auto) 1 % (0-3) Neutrophils # (Auto) 7.6 x10^3uL (1.8-7.7) Lymphocytes # (Auto) 1.0 x10^3/uL (1.0-4.8) Monocytes # (Auto) 0.6 x10^3/uL (0.0-1.1) Eosinophils # (Auto) 0.2 x10^3/uL (0.0-0.7) Basophils # (Auto) 0.0 x10^3/uL (0.0-0.2) Sodium Level 137 mmol/L (136-145) Potassium Level 3.2 mmol/L (3.5-5.1) Chloride Level 101 mmol/L (98-107) Carbon Dioxide Level 25 mmol/L (21-32) Anion Gap 11 (6-14) Blood Urea Nitrogen 10 mg/dL (8-26) Creatinine 1.3 mg/dL (0.7-1.3) Estimated GFR (Cockcroft-Gault) 63.6 Glucose Level 84 mg/dL (70-99) Calcium Level 9.2 mg/dL (8.5-10.1) Medications Current Medications Ondansetron HCl (Zofran) 4 mg 1X ONCE IV Last administered on 04/29/18at 07:50 ; Start 04/29/18 at 07:30; Stop 04/29/18 at 07:44; Status DC Famotidine (Pepcid Vial) 20 mg 1X ONCE IVP Last administered on 04/29/18at 07: 52; Start 04/29/18 at 07:30; Stop 04/29/18 at 07:44; Status DC Ketorolac Tromethamine (Toradol 30mg Vial) 15 mg 1X ONCE IV Last administered on 04/29/18at 07:53; Start 04/29/18 at 07:30; Stop 04/29/18 at 07:44; Status DC Sodium Chloride 1,000 ml @ 1,000 mls/hr 1X ONCE IV Last administered on at 07:48; Start 04/29/18 at 07:30; Stop 04/29/18 at 08:29; Status DC Iohexol (Omnipaque 300 Mg/ml) 75 ml 1X ONCE IV Last administered on 04/29/18at 09:12; Start 04/29/18 at 08:15; Stop 04/29/18 at 08:30; Status DC Iohexol (Omnipaque 240 Mg/ml) 50 ml 1X ONCE PO Last administered on 04/29/18at 08:15; Start 04/29/18 at 08:15; Stop 04/29/18 at 08:30; Status DC Aspirin (Shelbie Aspirin) 325 mg 1X ONCE PO Last administered on 04/29/18at 08:53 ; Start 04/29/18 at 08:30; Stop 04/29/18 at 08:31; Status DC Labetalol HCl (Normodyne Iv Push) 20 mg 1X ONCE IVP Last administered on at 08:55; Start 04/29/18 at 08:30; Stop 04/29/18 at 08:31; Status DC Potassium Chloride/Sodium Chloride 1,000 ml @ 150 mls/hr 1X ONCE IV Last administered on 04/29/18at 08:56; Start 04/29/18 at 08:30; Stop 04/29/18 at 15:09 ; Status DC Ceftriaxone Sodium 50 ml @ 100 mls/hr 1X ONCE IV Last administered on at 11:29; Start 04/29/18 at 10:00; Stop 04/29/18 at 10:29; Status DC Metronidazole 100 ml @ 100 mls/hr 1X ONCE IV Last administered on 04/29/18at 12:25; Start 04/29/18 at 10:00; Stop 04/29/18 at 10:59; Status DC Labetalol HCl (Normodyne Iv Push) 20 mg 1X ONCE IVP Last administered on at 10:48; Start 04/29/18 at 10:00; Stop 04/29/18 at 10:04; Status DC Ondansetron HCl (Zofran) 4 mg PRN Q8HRS PRN IV NAUSEA/VOMITING Last administered on 04/29/18at 15:02; Start 04/29/18 at 10:15; Stop 04/29/18 at 20:44 ; Status DC Fentanyl Citrate (Fentanyl 2ml Vial) 50 mcg PRN Q2HR PRN IV PAIN Last administered on 04/29/18at 21:07; Start 04/29/18 at 10:15; Stop 10/3/18 at 10:14 ; Status DC Nicotine (Nicoderm Cq 21mg) 1 patch 1X ONCE TD Last administered on 04/29/18at 10:46; Start 04/29/18 at 10:15; Stop 04/29/18 at 10:16; Status DC Potassium Chloride (Klor-Con) 40 meq 1X ONCE PO Last administered on at 11:29; Start 04/29/18 at 10:15; Stop 04/29/18 at 10:16; Status DC Nicardipine HCl 50 mg/Sodium Chloride 270 ml @ 27 mls/hr CONT PRN IV SEE I/O RECORD Last administered on 04/29/18at 21:17; Start 04/29/18 at 11:30; Stop 04/30 at 12:23; Status DC Hydralazine HCl (Apresoline) 25 mg BID PO Last administered on 05/01/18at 08:23 ; Start 04/29/18 at 12:30; Stop 05/01/18 at 11:13; Status DC Carvedilol (Coreg) 6.25 mg BIDWMEALS PO Last administered on 04/30/18at 08:08; Start 04/29/18 at 17:00; Stop 04/30/18 at 08:49; Status DC Pantoprazole Sodium (Protonix) 40 mg DAILYAC PO Last administered on 05/01/18at 08:23; Start 04/29/18 at 16:30 Bisacodyl (Dulcolax Tab) 10 mg 1X ONCE PO Last administered on 04/29/18at 15:00 ; Start 04/29/18 at 13:30; Stop 04/29/18 at 13:31; Status DC Polyethylene Glycol (miraLAX PACKET) 17 gm DAILY PO Last administered on at 08:24; Start 04/29/18 at 14:00; Stop 05/01/18 at 10:27; Status DC Potassium Chloride (Klor-Con) 40 meq 1X ONCE PO Last administered on at 15:00; Start 04/29/18 at 13:30; Stop 04/29/18 at 13:35; Status DC Potassium Chloride (Klor-Con) 40 meq DAILYWBKFT PO Last administered on at 08:23; Start 04/30/18 at 08:00 Ondansetron HCl (Zofran) 4 mg PRN Q6HRS PRN IV NAUSEA/VOMITING Last administered on 04/29/18at 21:08; Start 04/29/18 at 20:45; Stop 04/30/18 at 11:26 ; Status DC Acetaminophen/ Hydrocodone Bitart (Lortab 5/325) 1 tab PRN Q3HRS PRN PO MODERATE PAIN Last administered on 05/01/18at 15:02; Start 04/30/18 at 01:00 Potassium Chloride/Sodium Chloride 1,000 ml @ 250 mls/hr Q4H IV Last administered on 04/30/18at 05:33; Start 04/30/18 at 06:00; Stop 04/30/18 at 09:59 ; Status DC Potassium Chloride (Klor-Con) 40 meq 1X ONCE PO Last administered on at 05:43; Start 04/30/18 at 06:00; Stop 04/30/18 at 06:01; Status DC Potassium Chloride (Klor-Con) 40 meq 1X ONCE PO Last administered on at 08:05; Start 04/30/18 at 07:30; Stop 04/30/18 at 07:31; Status DC Carvedilol (Coreg) 12.5 mg BIDWMEALS PO Last administered on 05/01/18at 08:22; Start 04/30/18 at 17:00; Stop 05/01/18 at 11:13; Status DC Carvedilol (Coreg) 6.25 mg ONCE ONCE PO Last administered on 04/30/18at 09:08; Start 04/30/18 at 09:00; Stop 04/30/18 at 09:01; Status DC Acetaminophen (Tylenol) 650 mg PRN Q6HRS PRN PO FEVER; Start 04/30/18 at 09:15 Ondansetron HCl (Zofran) 4 mg PRN Q6HRS PRN IV NAUSEA/VOMITING; Start 04/30/18 at 09:15 Morphine Sulfate (Morphine Sulfate) 2 mg PRN Q2HR PRN IV MODERATE TO SEVERE PAIN; Start 04/30/18 at 09:15 Tramadol HCl (Ultram) 50 mg PRN Q6HRS PRN PO MILD PAIN Last administered on 05/01/18at 21:28; Start 04/30/18 at 09:15 Docusate Sodium (Colace) 100 mg PRN DAILY PRN PO CONSTIPATION; Start 04/30/18 at 09:15 Albuterol/ Ipratropium (Duoneb) 3 ml RTQID NEB Last administered on 05/02/18at 07:52; Start 04/30/18 at 12:00 Albuterol Sulfate (Ventolin Neb Soln) 2.5 mg PRN Q2HR PRN NEB SHORTNESS OF BREATH; Start 04/30/18 at 09:15 Guaifenesin (Mucinex) 600 mg BID PO Last administered on 05/01/18at 08:23; Start 04/30/18 at 10:00 Dicyclomine HCl (Bentyl) 10 mg PRN QID PRN PO abd pain; Start 04/30/18 at 11:45 Labetalol HCl (Normodyne Iv Push) 20 mg PRN Q2HR PRN IVP HYPERTENSION, SEE COMMENTS Last administered on 05/01/18at 02:56; Start 04/30/18 at 12:30 Enoxaparin Sodium (Lovenox 40mg Syringe) 40 mg Q24H SQ Last administered on 05/01/18at 12:00; Start 04/30/18 at 13:00 Nicotine (Nicoderm Cq 21mg) 1 patch PRN DAILY PRN TD SMOKING CESSATION Last administered on 05/01/18at 12:05; Start 04/30/18 at 15:15 Polyethylene Glycol (miraLAX PACKET) 17 gm PRN DAILY PRN PO CONSTIPATION; Start 05/01/18 at 10:30 Carvedilol (Coreg) 25 mg BIDWMEALS PO Last administered on 05/02/18at 09:12; Start 05/01/18 at 17:00 Hydralazine HCl (Apresoline) 50 mg BID PO Last administered on 05/02/18at 09:11 ; Start 05/01/18 at 21:00 Potassium Chloride (Klor-Con) 40 meq 1X ONCE PO Last administered on at 11:59; Start 05/01/18 at 12:00; Stop 05/01/18 at 12:01; Status DC Carvedilol (Coreg) 12.5 mg 1X ONCE PO Last administered on 05/01/18at 11:59; Start 05/01/18 at 12:00; Stop 05/01/18 at 12:01; Status DC Iron Sucrose 200 mg/Sodium Chloride 110 ml @ 55 mls/hr DAILY IV Last administered on 05/02/18at 09:11; Start 05/01/18 at 13:00; Stop 05/03/18 at 12:59 Enalaprilat (Vasotec Inj) 1.25 mg PRN Q6HRS PRN IVP HYPERTENSION, SEE COMMENTS ; Start 05/01/18 at 11:45 Magnesium Citrate (Citroma) 296 ml 1X ONCE PO Last administered on 05/01/18at 15:01; Start 05/01/18 at 12:30; Stop 05/01/18 at 12:36; Status DC Polyethylene Glycol (miraLAX Powder BULK BOTTLE) 238 gm 1X ONCE PO Last administered on 05/01/18at 15:01; Start 05/01/18 at 12:30; Stop 05/01/18 at 12:36 ; Status DC Bisacodyl (Dulcolax Tab) 5 mg 1X ONCE PO Last administered on 05/01/18at 15:02 ; Start 05/01/18 at 12:30; Stop 05/01/18 at 12:36; Status DC Ondansetron HCl (Zofran) 4 mg PRN Q6HRS PRN IV NAUSEA/VOMITING; Start 05/02/18 at 07:00; Stop 05/03/18 at 06:59 Fentanyl Citrate (Fentanyl 2ml Vial) 25 mcg PRN Q5MIN PRN IV MILD PAIN; Start 05/02/18 at 07:00; Stop 05/03/18 at 06:59 Fentanyl Citrate (Fentanyl 2ml Vial) 50 mcg PRN Q5MIN PRN IV MODERATE TO SEVERE PAIN; Start 05/02/18 at 07:00; Stop 05/03/18 at 06:59 Morphine Sulfate (Morphine Sulfate) 1 mg PRN Q10MIN PRN IV SEVERE PAIN; Start 05/02/18 at 07:00; Stop 05/03/18 at 06:59 Ringer's Solution 1,000 ml @ 30 mls/hr Q24H IV Last administered on 05/02/18at 07:00; Start 05/02/18 at 07:00; Stop 05/02/18 at 18:59 Lidocaine HCl (Xylocaine-Mpf 1% 2ml Vial) 2 ml PRN 1X PRN ID IV START; Start 05/02/18 at 07:00; Stop 05/03/18 at 06:59 Hydromorphone HCl (Dilaudid) 0.5 mg PRN Q10MIN PRN IV SEV PAIN, Second choice; Start 05/02/18 at 07:00; Stop 05/03/18 at 06:59 Prochlorperazine Edisylate (Compazine) 5 mg PACU PRN PRN IV NAUSEA, MRX1; Start 05/02/18 at 07:00; Stop 05/03/18 at 06:59 Amlodipine Besylate (Norvasc) 10 mg DAILY PO Last administered on 05/02/18at 09: 12; Start 05/01/18 at 19:00 Potassium Chloride (Klor-Con) 40 meq 1X ONCE PO ; Start 05/02/18 at 10:30; Stop 05/02/18 at 10:31; Status DC Potassium Chloride (Klor-Con) 40 meq 1X ONCE PO ; Start 05/02/18 at 11:00; Stop 05/02/18 at 11:01; Status DC Sodium Chloride 1,000 ml @ 125 mls/hr Q8H IV Last administered on 05/02/18at 11 :28; Start 05/02/18 at 11:26; Stop 05/02/18 at 23:25 Propofol 40 ml @ As Directed STK-MED ONCE IV ; Start 05/02/18 at 12:00; Stop at 12:02; Status DC Lidocaine HCl (Xylocaine-Mpf 2% Vial) 2 ml STK-MED ONCE .ROUTE ; Start 05/02/18 at 12:01; Stop 05/02/18 at 12:02; Status DC Vitals/I & O Vital Sign - Last 24 Hours 05/01/18 05/01/18 05/01/18 05/01/18 15:00 15:02 15:43 16:02 Temp 98.1 98.1 Pulse 87 Resp 18 17 17 B/P (MAP) 171/121 (138) Pulse Ox 96 98 96 O2 Delivery Room Air Room Air Room Air Room Air 05/01/18 05/01/18 05/01/18 05/01/18 17:13 19:00 20:00 20:08 Temp 98.2 98.2 Pulse 87 98 Resp 18 B/P (MAP) 166/112 180/122 (141) Pulse Ox 99 O2 Delivery Room Air Room Air Room Air 05/01/18 05/01/18 05/01/18 05/01/18 21:27 21:28 21:28 22:30 Pulse 98 98 Resp 18 18 B/P (MAP) 180/122 180/122 Pulse Ox 99 98 O2 Delivery Room Air Room Air 05/01/18 05/02/18 05/02/18 05/02/18 23:36 03:00 07:54 08:00 Temp 98.0 98.0 97.8 98.0 98.0 97.8 Pulse 98 93 111 Resp 18 18 20 B/P (MAP) 169/115 (133) 151/103 (119) 161/116 (131) Pulse Ox 98 98 100 99 O2 Delivery Room Air Room Air Room Air Room Air 05/02/18 05/02/18 05/02/18 05/02/18 08:05 09:11 09:12 09:12 Pulse 104 104 104 O2 Delivery Room Air 05/02/18 05/02/18 11:13 11:18 Temp 98.5 98.5 Pulse 84 Resp 20 Pulse Ox 98 O2 Delivery Room Air Intake and Output 05/01/18 05/01/18 05/02/18 15:00 23:00 07:00 Intake Total 3600 ml Output Total 1 ml Balance -1 ml 3600 ml Nutrition Consultation Dietary Evaluation: Recommendations by RD: Protein supplementation Comments: Advance diet as able to goal diet cardiac Will add Ensure Clear TID Expected Outcomes/Goals: Diet advancement Interpretation of weight loss: >5% in 1 month Malnutrition Findings: Weight Status: Appropriate AUTUMN MEDINA MD May 02, 2018 12:55
--- NOTE | 2018-05-02 12:59 | PDOC4 ---
PROCEDURE Procedure Colonoscopy iron def anemia, abn CT anesthesia; Propofol Findings- polyposis syndrome- hundreds of polyps throughout colon, more in left colon- many greater than 15 mm, pedunculated - many semi-sessile- removed ,many of the larger ones (over 10) Plan- check path- likely will need repeat colonoscopy with further polypectomy but assisted risk of colon cancer very high- total colectomy may be indicated RAIMUNDO EDUARDO MD May 02, 2018 12:59
[2018-05-02] MEDS: ENOXAPARIN 40 MG/0.4 ML SYRINGE. SQ SCH (13:00)
[2018-05-02] MEDS: POTASSIUM CHLORIDE 20 MEQ TABLET.ER. PO SCH (14:13)
[2018-05-02] MEDS: NICOTINE 21MG PATCH. TD PRN (16:21)
[2018-05-03 03:05] VITALS: BP 152/101
[2018-05-03 04:55] LABS: BASO # 0.1 x10^3/uL (0.0-0.2); BASO % 1 % (0-3); EOS # 0.3 x10^3/uL (0.0-0.7); EOS % 3 % (0-3); HEMATOCRIT 34.6 % (39.0-53.0); HEMOGLOBIN 11.8 g/dL (13.0-17.5); LYMPH # 1.5 x10^3/uL (1.0-4.8); LYMPH % 16 % (24-48); MEAN CORPUSCULAR HEMOGLOBIN 29 pg (25-35); MEAN CORPUSCULAR HGB CONC 34 g/dL (31-37); MEAN CORPUSCULAR VOLUME 85 fL (79-100); MONO # 0.7 x10^3/uL (0.0-1.1); MONO % 8 % (0-9); NEUT # 7.2 x10^3uL (1.8-7.7); NEUT % 73 % (31-73); PLATELET COUNT 241 x10^3/uL (140-400); RED BLOOD COUNT 4.05 x10^6/uL (4.30-5.70); RED CELL DISTRIBUTION WIDTH 14.6 % (11.5-14.5); WHITE BLOOD COUNT 9.8 x10^3/uL (4.0-11.0)
[2018-05-03 05:34] LABS: CALCIUM 9.2 mg/dL (8.5-10.1); CREATININE 1.4 mg/dL (0.7-1.3); GFR 58.4; POTASSIUM 3.7 mmol/L (3.5-5.1)
[2018-05-03 07:00] VITALS: BP 155/108
[2018-05-03] MEDS: POTASSIUM CHLORIDE 20 MEQ TABLET.ER. PO SCH (08:16)
[2018-05-03] MEDS: PANTOPRAZOLE 40 MG TABLET.DR. PO SCH (08:17)
[2018-05-03] MEDS: CARVEDILOL 12.5 MG TABLET. PO SCH (08:17)
[2018-05-03 08:18] VITALS: BP 155/108
[2018-05-03] MEDS: amLODIPine BESYLATE 10 MG TABLET PO SCH (08:18)
[2018-05-03] MEDS: IRON SUCROSE COMPLEX 200 MG in IV NORMAL SALINE 100ML 100 ML IV SCH (08:18)
[2018-05-03] MEDS: IPRATRPIUM/ALBUTEROL 0.5/2.5MG 3 ML NEBU. NEB SCH (08:34)
[2018-05-03] MEDS ORDERED: HYDR-2869 PO (10:15)
[2018-05-03] MEDS ORDERED: CARV12.52 PO (10:15)
[2018-05-03] MEDS ORDERED: POTA20TA4 PO (10:15)
[2018-05-03] MEDS ORDERED: FERR325T72 PO (10:15)
[2018-05-03] MEDS ORDERED: AMLO10TA6 PO (10:15)
[2018-05-03] MEDS ORDERED: FERROUS SULFATE 325 MG TABLET. PO SCH (12:00)
--- NOTE | 2018-05-03 13:40 | PDOC3 ---
Discharge Summary [facility] Date of Admission: Apr 29, 2018 Discharge Date: May 03, 2018 Admitting Diagnosis acute abdominal pain with constipation likely malignant hypertension, emergency hypertension acute renal failure, vasomotor critical hypokalemia troponinemia, demand, social anxiety disorder, lives with his mother, is unemployed, watches TV normally tobacco use disorder prior noncompliance with htn care dental caries copd bicuspid aortic valve iron deficiency chronic anemia with low iron polyposis syndrome post EGD, colonoscopy, polyps removal (hundreds seen) Final Diagnosis CONSULTS gi card Brief Hospital Course Mr. Cartwright is a 32 old M, no insurance, living with mother who was a nurse, came for abd pain, better with BM, has constipation. HTN urgency, no home meds, better with meds but still high, increase hydralazine before dc today, also on amlodipine and coreg. Echo, renal US ok, + bicuspid aortic valve, fu with card for echo. Pt Hb dropped with ivf, check iron very low, denies gib, got EGD AND Colonoscopy which , however, showed hundreds of polyps, some big ones removed and path pending. This is possible FAP but no family members had similar dz. Educated pt and mother mulitple times that needs to fu with GI for the path and get insurance anderson and need sx soon even if they are benign given high risk to became malignancy. they understood. dc time 35min. iron po prescribed. General: Alert, Oriented X3, Cooperative, mild distress Heart: Regular rate, Normal S1, Normal S2, No murmurs, Other (no carotid bruits ) Lungs: Clear Abdomen: Normal bowel sounds, Soft, Other (left side mild abd pain) Extremities: No clubbing, No cyanosis Skin: No breakdown Disposition home CONDITION AT DISCHARGE: Improved Scheduled Amlodipine Besylate (Amlodipine Besylate), 10 MG PO DAILY Carvedilol (Carvedilol), 25 MG PO BIDWMEALS Ferrous Sulfate (Feosol), 325 MG PO BIDWMEALS Hydralazine Hcl (Hydralazine Hcl), 50 MG PO TID Potassium Chloride (Klor-Con M20), 40 MEQ PO DAILYWAUTUMN PALMER MD May 03, 2018 13:40
--- NOTE | 2018-05-05 15:07 | PATHOLOGY ---
[facility] Accession Number: [id number] . 01 Material submitted: . PART A: DUODENUM PART B: ANTRUM PART C: ASCENDING COLON POLYPECTOMY PART D: DESCENDING COLON POLYPECTOMY PART E: SIGMOID COLON POLYPECTOMY . 01 Clinical history: . Pre-OP DX: Anemia, abdominal pain Post-OP DX: Gastritis, rule out H. pylori, rule out celiac/sprue . 02 Diagnosis: A. Duodenal biopsies: - Mild nonspecific duodenitis, focal. - Small tubular adenomas. . B. Gastric biopsy, antrum: - Chronic gastritis, mild. . C. Colon biopsy, ascending colon polyp: - Tubulovillous adenoma. . D. Colon biopsies, descending colon polyps: - Tubular and tubulovillous adenomas. . E. Colon biopsies, sigmoid colon polyps: - Tubular and tubulovillous adenomas. (JPM:shaan; 05/05/2018) QMS/05/05/2018 . 02 Comment: Sections of the duodenal biopsies show focal mild acute and chronic inflammation and small tubular adenomas. There are no sprue-like changes. There is no high-grade dysplasia or evidence of malignancy. . Sections of the gastric antral biopsy show congestion and mild chronic inflammation. A properly controlled immunoperoxidase stain for Helicobacter is negative for Helicobacter organisms. . Sections of the ascending colon, descending colon, and sigmoid colon polyp biopsies reveal tubular adenomas and tubulovillous adenomas showing no high-grade dysplasia or evidence of malignancy. (JPM:shaan; 05/05/2018) . . Special stain performed: Immunoperoxidase stain for Helicobacter on B1. . 02 Electronically signed: . South Fuller MD, Pathologist NPI- [id number] . 01 Gross description: . A. Received in formalin labeled "Ishan Cartwright, duodenum," are 3 segments of mejia soft tissue measuring 0.9 x 0.8 x 0.3 cm in aggregate dimensions and ranging from 0.3 to 0.5 cm in maximum dimension. The specimen is submitted entirely in cassette A1. . B. Received in formalin labeled "Ishan Cartwright, antrum," is a single segment of mejia soft tissue measuring 0.6 cm in maximum dimension. The specimen is entirely submitted in cassette B1. . C. Received in formalin labeled "Ishan Cartwright, ascending colon polyp," is a 1.0 x 0.4 x 0.4 polypoid piece of mejia soft tissue. The margin is inked and the specimen is sectioned perpendicular to the margin and entirely submitted in cassette C1. . D. Received in formalin labeled "Ishan Cartwright, descending colon polyp," are multiple segments of mejia soft tissue admixed with vegetative material measuring 2.3 x 1.4 x 0.3 cm in aggregate dimensions. The specimen is filtered and entirely submitted in cassette D1. . E. Received in formalin labeled "Ishan Cartwright, sigmoid, polypectomy," is a 1.3 x 1.1 x 0.9 cm polypoid piece of mejia soft tissue. The margin is inked and the specimen is sectioned perpendicular to the margin and entirely submitted in cassette E1. Additionally received in the same container is a 0.7 x 0.6 x 0.6 cm polypoid piece of mejia soft tissue with a stalk measuring 1.2 cm in length and 0.2 cm in diameter. The margin of the stalk is inked and the specimen is sectioned perpendicular to the margin and entirely submitted in cassette A2. Also received in the container is a 0.9 x 0.6 x 0.8 cm polypoid piece of mejia soft tissue. The margin is inked and the specimen is sectioned perpendicular to the margin and entirely submitted in cassette E3. (TSD; 05/02/2018) TOB/TOB . 02 Pathologist provided ICD-10: D13.2, D12.2, D12.5, D12.4, K29.80, K29.50 . 02 CPT . 894265, 574687, 781131, 853117, 830754, [id number] Specimen Comment: A courtesy copy of this report has been sent to Specimen Comment: [phone], , . Specimen Comment: Report sent to ,DR ADRIAN / DR CRANE Performed at: [address], [place] [id number] MD Edgar Singleton MD Phone: [phone] Performed at: 02 [facility] [address], [place] [id number] MD South Fuller MD Phone: [phone]
== END 2018-05-03 11:41 | disposition home or self-care (01) | DRG 280 ==
LOC: ER 06:38 → 2 SOUTH 10:05 → 1 WEST ICU 11:24 → 2 SOUTH 04-30 12:15
PROVIDERS: ADMIT Internal Medicine; ATTEND Internal Medicine
PROC: 0DBG8ZZ Excision of Left Large Intestine, Via Natural or Artificial Opening Endoscopic (ICD-10-PCS; principal; 2018-05-02 12:00)
PROC: 0DB98ZX Excision of Duodenum, Via Natural or Artificial Opening Endoscopic, Diagnostic (ICD-10-PCS; 2018-05-02 12:00)
DX: I21.4 Non-ST elevation (NSTEMI) myocardial infarction (principal); N17.0 Acute kidney failure with tubular necrosis; I16.1 Hypertensive emergency; Q23.1 Congenital insufficiency of aortic valve; D50.9 Iron deficiency anemia, unspecified; E87.6 Hypokalemia; F17.210 Nicotine dependence, cigarettes, uncomplicated; I10 Essential (primary) hypertension; J44.9 Chronic obstructive pulmonary disease, unspecified; K02.9 Dental caries, unspecified; K29.70 Gastritis, unspecified, without bleeding; I34.0 Nonrheumatic mitral (valve) insufficiency; I07.1 Rheumatic tricuspid insufficiency; K29.80 Duodenitis without bleeding; K52.9 Noninfective gastroenteritis and colitis, unspecified; K59.00 Constipation, unspecified; N32.89 Other specified disorders of bladder; Z79.1 Long term (current) use of non-steroidal anti-inflammatories (NSAID); Z80.3 Family history of malignant neoplasm of breast; Z82.3 Family history of stroke; Z82.49 Family history of ischemic heart disease and other diseases of the circulatory system; Z82.5 Family history of asthma and other chronic lower respiratory diseases; Z91.19 Patient's noncompliance with other medical treatment and regimen
CPT/HCPCS: 36415; 45380; 45385; 71045; 74177; 76770; 80048; 80053; 80307; 81001; 82553; 83540; 83550; 83605; 83690; 83735; 84484; 85007; 85025; 85610; 87641; 93005; 93306; 94640; 94760; 96361; 96365; 96375; 96376; 99406; J0690; J1650; J1756; J1885; J2001; J2405; J2704; J3010; J3480; J3490; J7030; J7050; J7120; J7620; Q9966; Q9967; S0028; 99285-25; G0479